=== PATIENT | female | born 1960 | race Caucasian/White ===

== ENCOUNTER → 2017-03-02 | Outpatient (CLI) | payer OTHER ==
[2017-03-02 08:31] LABS: HEMATOCRIT 42.6 % (37.0-47.0); HEMOGLOBIN 14.3 gm/dL (12.0-15.0); MCH 28.1 pg (26.0-34.0); MCHC 33.5 g/dL (28.0-37.0); MCV 84.1 fL (80.0-100.0); RBC 5.07 mil/uL (4.20-5.00); WBC 10.7 thou/uL (4.0-11.0)
[2017-03-02 08:40] LABS: CALCIUM 8.7 mg/dL (8.5-10.1); CREATININE 1.2 mg/dL (0.6-1.0); POTASSIUM 4.1 mmol/L (3.5-5.1)
[2017-03-02 08:46] LABS: ALBUMIN 3.5 g/dL (3.4-5.0); TOTAL BILIRUBIN 0.2 mg/dL (<0.1-1.0); TOTAL PROTEIN 7.3 g/dL (6.4-8.2)
== END ==
LOC: CAT 08:09 → LABMALL 08:46
PROVIDERS: Internal Medicine Cardiovascular Disease
DX: I48.91 Unspecified atrial fibrillation (principal)

== ENCOUNTER 2018-09-26 06:32 | Observation (INO) | payer OTHER ==
[~2018-09-26] VITALS: Ht 162.6 cm; Wt 83.9 kg
[2018-09-26] VITALS (11 sets, daily range): BP systolic 102–115; BP diastolic 34–60
--- NOTE | ~2018-09-26 | P ---
[facility] [place] [address] PROCEDURE REPORT Name: JACEY ATKINSON Room #: 208-P [facility] Meryl Farley#: [id number] Admission: 09/26/18 ������������������ Attend Phys: Ammon Gibson MD Discharge: 09/27/18 ������������������ Date of : 56 Report #: [id number] THIS REPORT FOR: //name// CC: [facility] PREOPERATIVE DIAGNOSIS: Atrial fibrillation. POSTOPERATIVE DIAGNOSES: Atrial fibrillation and atrial flutter. PROCEDURES: 1. Atrial fibrillation ablation, CPT code 43769. 2. 3D mapping EP, CPT code 90258. 3. Intracardiac echo, CPT code 14178. 4. Second pathway ablation for atrial flutter, CPT code 80585. HISTORY: The patient is a 58-year-old female status post prior AFib ablation with clinical recurrence, here for a repeat ablation. ANESTHESIA: The patient underwent general anesthesia with no anesthesia related complications. DESCRIPTION OF PROCEDURE: The patient underwent informed consent. We discussed the details of the procedure including the risks, which include but not limited to bleeding, vascular damage, cardiac perforation as well as stroke or MA. She understood these risks and is willing to proceed. The patient was brought to the EP laboratory in a fasting and unsedated state and prepped and draped in a sterile fashion. I obtained access to the bilateral femoral veins placing two 8-Kyrgyz short sheaths in the right femoral vein and a 7 and 9-Kyrgyz short sheath in the left femoral vein using the modified Seldinger technique. Next, under fluoroscopy, decapolar catheter was placed easily in the coronary sinus and ICE catheter was placed in the right atrium. Next, using intracardiac ultrasound, I created a 3D geometry of the left atrium with specific emphasis of the 2 left and 2 right pulmonary veins. At baseline, the patient was in sinus rhythm with a sinus cycle length of 1035 milliseconds, GA interval 180 milliseconds, QRS duration 70 milliseconds, QT interval 465 milliseconds. Next, the patient was systemically heparinized and a transseptal was performed using a [place] needle and an SL1 sheath. The transseptal was straightforward and I then placed a Lasso catheter in the left atrium. When I placed a Lasso in the left atrium, the patient went into atrial flutter with a proximal and distal activation along the CS and the surface P-wave morphology consistent with typical atrial flutter. Given that this was causing her to be tachycardic, I did pace terminate this with atrial burst pacing from the CS. Using the Lasso catheter, I created a detailed 3D voltage map of the left atrium and this showed that the only vein that remained isolated was left superior [facility] [address] [place] [address] PROCEDURE REPORT Name: JACEY ATKINSONN Room #: 208-P ALANIS Kaminski.RBakari#: [id number] Admission: 09/26/18 ������������������ Attend Phys: Ammon Gibson MD Discharge: 09/27/18 ������������������ Date of : 56 Report #: [id number] pulmonary vein with some large left atrial appendage signals. Therefore, I performed a second transseptal using another SL1 sheath and the [place] needle and placed the Biosense Siddiqi ThermoCool SmartTouch ablation catheter in the left atrium. I isolated the left inferior pulmonary vein and right superior pulmonary vein. I then turned my attention to the right inferior pulmonary vein. This vein was slightly more difficult to isolate. It was mostly reconnected along the inferior aspect of the vein. Extensive ablation was performed here and it was still connected. I continued ablating and eventually I was able to isolate the vein with evidence of entrance and exit block. Next, I created a repeat 3D voltage map of the left atrium and now all the pulmonary veins were isolated. I pulled my catheters to the right atrium. Ablation of typical atrial flutter: Next, I created a detailed 3D geometry of the right atrium and the transisthmus conduction time preablation was 50 milliseconds. I performed ablation via a ramp sheath. The initial ablation line did not result in block. The patient did have a deep pouch at her isthmus. I performed extensive ablation within the pouch, which was mostly along the mid isthmus. There was still no evidence of block. I then performed a more medial line and took care of all the signals in this area. Despite this, the patient was still connected. I then performed a more lateral line and after performing this lesion set, there was now evidence of bidirectional block with transisthmus conduction time of 140 milliseconds. Post-ablation, the patient was in sinus rhythm with sinus cycle length of 915 milliseconds, GA interval 170 milliseconds, QRS duration 75 milliseconds, QT interval 460 milliseconds. As such, all catheters and sheaths were pulled after the patient received systemic protamine. The patient awoke neurologically and hemodynamically intact with no complications. CONCLUSIONS: 1. Successful AFib ablation with re-isolation of the left inferior, right superior and right inferior pulmonary veins. 2. Successful atrial flutter ablation with evidence of bidirectional block. ��������������������������������������������� ���������������������������������������� By: ��������������������������������������������� 0841 0032 Ammon Gibson MD /nt
--- NOTE | ~2018-09-26 | D ---
[facility] [place] [address] DISCHARGE SUMMARY Name: JACEY ATKINSON Room #: 208-P [facility] M.RBakari#: [id number] Admission: 09/26/18 ������������������ Attend Phys: Ammon Gibson MD Discharge: 09/27/18 ������������������ Date of : 56 Report #: [id number] THIS REPORT FOR: //name// CC: Buddy Gibson [facility] DATE OF SERVICE: 09/27/2018 DISCHARGE DIAGNOSES: 1. Atrial fibrillation. 2. Atrial flutter. PROCEDURES PERFORMED: AFib and Aflutter ablation. HISTORY: The patient is a 58-year-old with history of atrial fibrillation status post prior ablation. She has recently had clinical recurrence and is here for a repeat ablation. She underwent successful re-isolation of the left inferior, right superior and right inferior pulmonary veins and also underwent Aflutter ablation. The procedure was straightforward with no complications. HOSPITAL COURSE: The patient was monitored in the CCU overnight. Post-ablation, I did give her some Lasix as during her last ablation, she did have some diastolic heart failure. She diuresed well overnight. She did receive some potassium as well. On the day of discharge, she was doing well. PHYSICAL EXAMINATION: GENERAL: She was in no acute distress. HEENT: Oropharynx was clear. NECK: Supple, no thyromegaly. HEART: Regular rate and rhythm with no murmurs, rubs, gallops and no JVD. LUNGS: Clear to auscultation bilaterally. ABDOMEN: Soft, nontender, nondistended. EXTREMITIES: No clubbing, cyanosis, edema and her groins were healing nicely. Telemetry revealed sinus rhythm with no episodes of AFib or Aflutter and her repeat labs show that her creatinine and her potassium were within normal limits. As such, she was deemed stable for discharge home with plans to follow up with my nurse practitioner in two weeks and me in three months. Discharge instructions were reviewed. ��������������������������������������������� ���������������������������������������� By: ��������������������������������������������� 0845 1705 Ammon Gibson MD /nt
[~2018-09-26 06:32] MED LIST: ACETAMINOPHEN-1 EAC1 PO; ADVAIR HFA 230M12 GM INH; ASPIR 8181 M1 PO; CALCITRIOL0.5 MCG PO; CALCIUM 500 +1 EAC5 PO; CARDIZEM CD240 MG PO; FLEXERIL PO; KEPPRA 500 MG500 M1 PO; LAMICTAL200 MG PO; LEVALBUTER1.25 MG/0. INH; LEVOXYL137 MCG PO; LINZESS290 MCG PO; NASONEX17 GM NASAL; NEURONTIN 300300 M1 PO; NEXIUM40 MG PO; NORTRIPTYLINE H25 M3 PO; PRADAXA150 MG PO; PREDNISONE 20 M20 MG PO; PROPAFENONE HC300 MG PO; SINGULAIR 10 MG10 M1 PO; VENTOLIN HFA 1818 GM INH
[2018-09-26] MEDS ORDERED: LASIX 40 MG TAB40 M2 PO (07:24)
[2018-09-26] MEDS ORDERED: KLOR-CON 1010 MEQ PO (07:25)
[2018-09-26 07:27] LABS: ABSOLUTE NEUTROPHILS 4.3 thou/uL (1.4-8.2); BASOPHILS 1.2 % (0.0-2.0); EOSINOPHILS 3.5 % (0.0-3.0); HEMATOCRIT 43.6 % (37.0-47.0); HEMOGLOBIN 14.4 gm/dL (12.0-15.0); LYMPHOCYTES 39.3 % (24.0-44.0); MCH 28.7 pg (26.0-34.0); MCHC 33.1 g/dL (28.0-37.0); MCV 86.8 fL (80.0-100.0); MONOCYTES 11.5 % (1.0-8.0); PLATELET COUNT 397 thou/uL (150-400); POLYS 44.5 % (36.0-66.0); RBC 5.02 mil/uL (4.20-5.00); WBC 9.6 thou/uL (4.0-11.0)
[2018-09-26 07:33] LABS: APTT 31.2 Seconds (24.5-32.8); CALCIUM 9.2 mg/dL (8.5-10.1); CREATININE 0.9 mg/dL (0.6-1.0); POTASSIUM 3.4 mmol/L (3.5-5.1); PROTIME 10.5 Seconds (9.3-11.4)
[2018-09-26 07:39] LABS: ALBUMIN 3.9 g/dL (3.4-5.0); TOTAL BILIRUBIN 0.4 mg/dL (<0.1-1.0)
--- NOTE | 2018-09-26 18:31 | NUR ---
PATIENT ARRIVED FROM CARDIAC LOG [facility]. L AND R GROIN INCISION, CLEAN, DRY AND INTACT. NO HEMATOMA NOTED. PRN PAIN MED GIVEN FOR BACK PAIN. DC'D SANCHEZ CATHETER. PATIENT HAS VAGAL MONITOR.
[2018-09-27 04:12] LABS: CALCIUM 8.8 mg/dL (8.5-10.1); CREATININE 0.9 mg/dL (0.6-1.0)
[2018-09-27 04:25] LABS: POTASSIUM 4.5 mmol/L (3.5-5.1)
--- NOTE | 2018-09-27 04:51 | NUR ---
PATIENTS CARES WERE ASSUMED AT SHIFT CHANGE. PATIENT WAS ASSESSED AND MEDS WERE PASSED. PATIENTS HAD A RESTFUL SLEEP THIS SHIFT. HOURLY ROUNDING WAS DONE AND PATIENT DID APPER TO BE SLEEPING WELL. PATIENT IS ON SEIZURE MEDICATION. PER PATIENT THE DOES IS NOT RIGHT. WILL PASS IN REPORT FOR THE DAY SHIFT TO CORRECT WITH DOCTOR. THE TWO MEDS ARE KEPPRA SHOULD BE 750 MG X2 B.I.D., SECOND MED IS LAMOTRIGINE SHOULD BE 250MG B.I.D. THE BED IS IN A LOW AND LOCKED POSITION. THE BED ALARM IS ON.
[2018-09-27 05:15] VITALS: BP 114/47
[2018-09-27 07:11] VITALS: BP 109/46
[2018-09-27] MEDS ORDERED: AMITIZA8 MCG (08:18)
--- NOTE | 2018-09-27 11:29 | NUR ---
ASSESSMENT DOCUMENTED. PT ALERT AND ORIENTED. VSS. NO HEMATOMA NOTED ON THE RIGHT GROIN INCISION. PRN PAIN MED GIVEN FOR CHRONIC BACK PAIN. SEEN BY DR LEPE. ORDERS GIVEN TO DISCHARGE PT TO HOME. DISCHARGE INSTRUCTIONS GIVEN TO PT. PT VERBERLIZE UNDERSTANDING. PT LEFT THE FACILITY ACCOMPANIED BY THE .
== END 2018-09-27 11:51 | disposition home or self-care (01) ==
LOC: CATH 06:32 → 2N 13:42 → ENTRNSPT 09-27 11:17 → EDTRNSPTSTS 09-27 11:36 → 2N 09-27 11:51
PROVIDERS: ADMIT Internal Medicine Cardiovascular Disease
DX: I48.91 Unspecified atrial fibrillation (principal); I48.92 Unspecified atrial flutter
CPT/HCPCS: 62110; 62900; 65020; 65040; 70005

== ENCOUNTER → 2018-11-10 | Outpatient (CLI) | payer OTHER ==
[~2018-11-10] MED LIST changes: +AMITIZA8 MCG; +KLOR-CON 1010 MEQ PO; +LASIX 40 MG TAB40 M2 PO
[2018-11-11 07:40] LABS: BE(vivo) 3.7 mmol/L (-2 to +3); HCO3 28.6 mmol/L (22.0-26.0); PCO2 44.2 mmHg (35.0-45.0); PO2 84.7 mmHg (80.0-100.0); pH 7.429 (7.360-7.450); sO2 96.6 % (92.0-98.0)
--- NOTE | 2018-11-11 22:12 | SLE ---
[facility] [place] [address] POLYSOMNOGRAPHY STUDY Name: JACEY ATKINSON Room #: REG [facility]#: [id number] Admission: 11/10/18 ������������������ Attend Phys: Merrill Riley MD Discharge: ������������������ Date of : 56 Report #: [id number] THIS REPORT FOR: //name// CC: Merrill Rivas DATE OF SERVICE: 11/10/2018 SLEEP STUDY ATTENDING PHYSICIAN: Dr. Mckinley Kay. The patient is 58 years old who weighs 178 pounds with a BMI of 30.6. The patient's [place] score was 16. Review of medications also reveals use of hydrocodone, Neurontin, Keppra, Lamictal. The patient underwent sleep study at [facility]. This was a diagnostic study. During the night study, the patient spent 478 minutes in bed and slept for 451 minutes with a sleep efficiency of 94%. Sleep latency was 0.1 minutes, which is short. REM latency of 92 minutes. Overall, sleep architecture showed normal stage 1 sleep, increased stage 2 sleep, reduced N3 sleep and reduced REM sleep. During the night study, the patient had 2 central apneas, no mixed or obstructive apneas and 18 hypopneas. The patient's apnea-hypopnea index was 2.7 per hour. REM KARL was not observed. The patient's supine AHI was 2.7 per hour. EKG monitoring revealed an average heart rate of 57 beats per minute, no sustained arrhythmias observed. No PLMS seen. Nocturnal oximetry study revealed an average oxygen saturation of 90% with a lowest of 85%. 150 minutes were spent in oxygen saturation of less than 89% and the pattern was more suggesting hypoventilation. Due to low AHI, the patient did not meet the split night criteria for CPAP initiation. The patient has a vagal stimulator and the patient used a magnet during the sleep study to shut off the stimulator. IMPRESSION: 1. No clinically significant sleep disordered breathing. The patient's apnea-hypopnea index for the entire night was 2.7 per hour. 2. Sustained pattern of nocturnal hypoxia suggesting hypoventilation. 3. No clinically significant periodic limb movements of sleep. RECOMMENDATIONS: [facility] [address] [place] [address] POLYSOMNOGRAPHY STUDY Name: JACEY ATKINSON Room #: [facility]#: [id number] Admission: 11/10/18 ������������������ Attend Phys: Merrill Riley MD Discharge: ������������������ Date of : 56 Report #: [id number] 1. The patient did not meet the criteria for CPAP initiation. 2. The patient's subjective hypersomnia may be related to the effect of medications. If clinically possible, consider reducing the doses of medications to see any clinical improvement. The patient is on hydrocodone, Lamictal, Neurontin, Keppra. 3. If clinical suspicion for other disorders such as narcolepsy or idiopathic hypersomnia is high, then the patient may require multiple sleep latency tests. ��������������������������������������������� <ELECTRONICALLY SIGNED> ���������������������������������������� By: Merrill Riley MD ��������������������������������������������� 11/11/18 2212 1707 1802 Merrill Riley MD /nt
== END ==
LOC: SLEEPLAB 11:29
PROVIDERS: Internal Medicine Critical Care Medicine
DX: G47.34 Idiopathic sleep related nonobstructive alveolar hypoventilation (principal); G47.19 Other hypersomnia; Z79.899 Other long term (current) drug therapy; Z88.0 Allergy status to penicillin; Z88.8 Allergy status to other drugs, medicaments and biological substances

== ENCOUNTER → 2018-11-26 | Outpatient (CLI) | payer OTHER ==
[2018-11-26 15:54] LABS: BE(vivo) 2.6 mmol/L (-2 to +3); HCO3 27.9 mmol/L (22.0-26.0); PCO2 45.4 mmHg (35.0-45.0); PO2 80.8 mmHg (80.0-100.0); pH 7.406 (7.360-7.450); sO2 95.9 % (92.0-98.0)
== END ==
LOC: RAD 15:20
PROVIDERS: Internal Medicine Pulmonary Disease
DX: R06.02 Shortness of breath (principal)

== ENCOUNTER → 2019-01-05 | Outpatient (CLI) | payer OTHER ==
--- NOTE | 2019-01-07 18:51 | SLE ---
[facility] [place] [address] POLYSOMNOGRAPHY STUDY Name: JACEY ATKINSON Room #: REG [facility]#: [id number] Admission: 01/05/19 ������������������ Attend Phys: Merrill Riley MD Discharge: ������������������ Date of : 56 Report #: [id number] THIS REPORT FOR: //name// CC: Merrill Rivas DATE OF SERVICE: 01/05/2019 SLEEP STUDY ATTENDING PHYSICIAN: Dr. Mckinley Kay. The patient is 58 years old who weighs 178 pounds with a BMI of 30.6. The patient's [place] score was 16 suggesting moderate to severe subjective hypersomnia. The patient had a previous sleep study in 11/2018 and was found to have an AHI of only 2.7 per hour. She also had nocturnal hypoxia suggesting hypoventilation. As a result she was placed on 2 liters at nighttime. The patient was also on Lamictal, gabapentin, Keppra, and hydrocodone. It was suggested that she should be tried on limiting the doses of these medications. The patient was referred back for a diagnostic sleep study followed by MSLT. The results of sleep study are dictated here. During the night study, the patient spent 489 minutes in bed and slept for 411 minutes with a sleep efficiency of 84%. Sleep latency was 21 minutes with a REM latency of 85 minutes. Overall, sleep architecture showed normal stage 1 sleep, increased stage 2 sleep, absent slow wave and normal REM sleep, which is 19% of total sleep time. During the night study, the patient had no apneas. There were only 2 hypopneas. The patient's apnea-hypopnea index for the entire night was 0.3 per hour. No significant change seen during supine or REM sleep. EKG monitoring revealed an average heart rate of 57 beats per minute. No sustained arrhythmias observed. No PLMS observed. Nocturnal oximetry study revealed an average oxygen saturation of 95% with a lowest of 91% while the patient slept on 2 liters. IMPRESSION: 1. No clinically significant sleep disordered breathing. The patient's AHI for the entire night was 0.3 per hour. 2. Near normal sleep efficiency of 84%. 3. No clinically significant nocturnal hypoxia while the patient slept on 2 liters of oxygen. [facility] [address] [place] [address] POLYSOMNOGRAPHY STUDY Name: JACEY ATKINSON Room #: REG [facility]#: [id number] Admission: 01/05/19 ������������������ Attend Phys: Merrill Riley MD Discharge: ������������������ Date of : 56 Report #: [id number] 4. No clinically significant periodic limb movements. RECOMMENDATIONS: 1. The patient did not meet the criteria for CPAP initiation. 2. The patient has persistent moderate to severe subjective hypersomnia. The patient underwent multiple sleep latency test to rule out the possibility of idiopathic hypersomnia or narcolepsy, which is dictated separately. 3. Avoid BUNGHOLE BORER depressants. It should be noted that the patient has been on Lamictal, gabapentin and Keppra, which can contribute to daytime sleepiness. Patient should be closely watched for hypersomnia while on these medications. 4. Cautioned regarding driving or operating heavy machinery until the patient's hypersomnia is resolved. ��������������������������������������������� <ELECTRONICALLY SIGNED> ���������������������������������������� By: Merrill Riley MD ��������������������������������������������� 01/07/19 1851 1526 1623 Merrill Riley MD /nt
== END ==
LOC: SLEEPLAB 14:56
DX: G47.34 Idiopathic sleep related nonobstructive alveolar hypoventilation (principal); G47.19 Other hypersomnia; J45.40 Moderate persistent asthma, uncomplicated; R53.83 Other fatigue; R06.02 Shortness of breath

== ENCOUNTER → 2019-01-06 | Outpatient (CLI) | payer OTHER ==
[2019-01-06 15:19] LABS: AMP/METHAMP Negative (Negative); BARBITURATES Negative (Negative); BENZODIAZEPINES Negative (Negative); COCAINE Negative (Negative); METHADONE Negative (Negative); OPIATES Negative (Negative); PCP Negative (Negative)
--- NOTE | 2019-01-07 22:39 | SLE ---
[facility] [place] [address] POLYSOMNOGRAPHY STUDY Name: JACEY ATKINSON Room #: REG [facility]#: [id number] Admission: 01/06/19 ������������������ Attend Phys: Merrill Riley MD Discharge: ������������������ Date of : 56 Report #: [id number] THIS REPORT FOR: //name// CC: Merrill KAY MD DATE OF SERVICE: 01/06/2019 MULTIPLE SLEEP LATENCY TEST ATTENDING PHYSICIAN: Dr. Mckinley Kay. The patient is a 58-year-old female who has been evaluated for persistent hypersomnia. The patient's [place] score was 16 out of a maximum of 24. The patient had a previous sleep study and was found to have no clinically significant sleep disordered breathing. The patient's AHI was 2.7 per hour. She has been on Lamictal, gabapentin and Keppra and was also taking hydrocodone. The side effects of medications were discussed, but according to the notes, she has been sleepy even prior to these medications. She was referred back for repeat polysomnogram followed by multiple sleep latency test. The results of the MSLT are discussed here. The patient did stop the hydrocodone, had reduced the dose of gabapentin, but could not take herself off of Lamictal and Keppra due to history of seizure. During the night prior to the multiple sleep latency test, the patient's AHI was only 0.3 per hour and sleep efficiency was 84% and no clinically significant PLMs observed. The MSLT protocol was followed, which consisted of 5 daytime nap opportunities spaced at 2 hour intervals. During the first nap session, the patient had a sleep latency of 6 minutes. No REM sleep was observed. During the second nap, the patient slept again with a sleep latency of 9 minutes and 54 seconds, but no REM sleep observed. During the third nap, the patient's sleep latency was 10 minutes. During the fourth nap, sleep latency was 16 minutes. Again, no REM sleep was observed on the third and the fourth naps. During the fifth nap, the patient's sleep latency was short at 36 seconds and no REM sleep was observed. The patient's mean sleep latency for 5 naps was 8 minutes and 30 seconds and no REM sleep observed. IMPRESSION: 1. Abnormal multiple sleep latency test with a short mean sleep latency of 8 minutes and 30 seconds. This is consistent with Idiopathic Hypersomia. Patient did not met the MSLT criteria for narcolepsy as no REM sleep was observed during the naps. RECOMMENDATIONS: 1. The patient can be initiated on stimulant medications. [address] [address] POLYSOMNOGRAPHY STUDY Name: JACEY ATKINSON Room #: REG [facility] Martine#: [id number] Admission: 01/06/19 ������������������ Attend Phys: Merrill Riley MD Discharge: ������������������ Date of : 56 Report #: [id number] 2. The patient should be followed up to see the clinical improvement after initiation of a stimulant medication. 3. The patient's anti-seizure medications including Lamictal and Keppra can also contribute to daytime sleepiness and the patient should be closely watched for hypersomnia while on these medications. Minimize the dose of gabapentin if clinically possible. 4. Cautioned regarding driving until the patient's hypersomnia is resolved. ��������������������������������������������� <ELECTRONICALLY SIGNED> ���������������������������������������� By: Merrill Riley MD ��������������������������������������������� 01/07/19 2239 185 46 Merrill Riley MD /nt
== END ==
LOC: SLEEPLAB 08:10
PROVIDERS: Internal Medicine Critical Care Medicine
DX: G47.34 Idiopathic sleep related nonobstructive alveolar hypoventilation (principal); G47.19 Other hypersomnia; J45.40 Moderate persistent asthma, uncomplicated; R53.83 Other fatigue; R06.02 Shortness of breath; I48.91 Unspecified atrial fibrillation

== ENCOUNTER → 2019-07-11 | Outpatient (CLI) | payer OTHER | LOC: SJCVC 15:00 | DX: R94.31 Abnormal electrocardiogram [ECG] [EKG] (principal); I48.0 Paroxysmal atrial fibrillation; I48.3 Typical atrial flutter; G89.29 Other chronic pain; I10 Essential (primary) hypertension; E03.9 Hypothyroidism, unspecified; Z90.49 Acquired absence of other specified parts of digestive tract; Z96.652 Presence of left artificial knee joint; Z79.899 Other long term (current) drug therapy ==

== ENCOUNTER → 2019-07-23 | Outpatient (CLI) | payer OTHER | LOC: SJCVCIMAG 13:39 | DX: I20.0 Unstable angina (principal); I48.0 Paroxysmal atrial fibrillation; I10 Essential (primary) hypertension; R60.9 Edema, unspecified; E03.9 Hypothyroidism, unspecified; Z79.899 Other long term (current) drug therapy; Z90.49 Acquired absence of other specified parts of digestive tract; Z82.49 Family history of ischemic heart disease and other diseases of the circulatory system ==

== ENCOUNTER → 2019-07-29 | Outpatient (CLI) | payer OTHER ==
[~2019-07-29] VITALS: Ht 162.6 cm; Wt 84.8 kg
--- NOTE | ~2019-07-29 | EKG ---
[facility] [address] [place] [address] ELECTROCARDIOGRAM REPORT Name: JACEY ATKINSON Room #: REG [facility]#: [id number] Admission: 07/29/19 Attend Phys: Hiren Edmonds MD Discharge: Date of : 56 Report #: [id number] THIS REPORT FOR: cc: FAM - Family physician unknown FAM - Family physician unknown Desirae Merrill MD ~ THIS REPORT FOR: //name// [facility] Test Date: 2019-07-29 Test Time: 09:04:18 Pat Name: JACEY ATKINSON Department: Room: Gender: F Alteration Tailor: Narayan GO : 1960 Requested By: Hiren Edmonds Order Number: [id number] MD: Measurements Intervals [place] Rate: 68 P: 54 SD: 183 QRS: 3 QRSD: 100 T: 29 QT: 412 QTc: 439 Interpretive Statements Sinus rhythm Inferior infarct, old Compared to ECG 03/09/2017 08:22:07 Myocardial infarct finding now present [email or web address] By: 0904 0904 Epiphany EpiphanyMD /EPI
[2019-07-29 09:19] LABS: HEMATOCRIT 39.8 % (37.0-47.0); HEMOGLOBIN 12.5 gm/dL (12.0-15.0); MCH 24.9 pg (26.0-34.0); MCHC 31.3 g/dL (28.0-37.0); MCV 79.4 fL (80.0-100.0); RBC 5.01 mil/uL (4.20-5.00); RDW 18.4 % (10.5-14.5); WBC 11.1 thou/uL (4.0-11.0)
[2019-07-29 09:29] LABS: CALCIUM 8.7 mg/dL (8.5-10.1); POTASSIUM 3.9 mmol/L (3.5-5.1)
[2019-07-29 11:24] VITALS: BP 134/64
--- NOTE | 2019-07-29 13:48 | CATHLAB ---
[facility] [place] [address] INVASIVE PROCEDURE REPORT Name: JACEY ATKINSON Room #: REG LUCAS Chon#: [id number] Admission: 07/29/19 Attend Phys: Hiren Edmonds MD Discharge: Date of : 56 Report #: [id number] THIS REPORT FOR: cc: FAM - Family physician unknown FAM - Family physician unknown Hiren Edmonds MD ~ APPROVED REPORT Study performed: 07/29/2019 08:56:25 Patient Details Patient Status: Out-Patient Room #: The patient is a 59 year-old female Event Personnel Hiren Edmonds Environmental Health Specialist, Stacie Mott RN RN, Heaven Kim Monitor, Torin Barriga RTR Scrub Procedures Performed Art Access - R femoral artery* Left Heart Cath w/or w/o Coronaries [id number] [facility] [address] Initial Mod Sed Same Phys/QHP Gr5y [id number] 35695 Mod Sed Same Phys/QHP Ea 760698 Hemostasis with Manual pressure Indication Dyspnea, Positive stress test, Chest pain Risk Factors Hypercholesterolemia, Hypertension Procedure Narrative The Right Groin^ was infiltrated with 1% Lidocaine subcutaneous anesthesia. A PINNACLE 4FR Sheath #[id number] sheath was inserted into the RFA^. Coronary angiography was performed using coronary diagnostic catheters. The right coronary system was accessed and visualized with a AR 1 catheter. The left coronary system was accessed and visualized with a JL4 catheter. The left ventricle was accessed and visualized with a ANGLE PIG catheter. Left ventriculogram was performed in 30 degree projection. Hemostasis was obtained with manual pressure following sheath removal without any complications. The patient tolerated the procedure well and there were no complications associated with the procedure. There was no hematoma. [facility] [address] [place] [address] INVASIVE PROCEDURE REPORT Name: JACEY ATKINSON Drake Room #: REG [facility]#: [id number] Admission: 07/29/19 Attend Phys: Hiren Edmonds MD Discharge: Date of : 56 Report #: [id number] Intraoperative Conscious Sedation Sedation start time: 951 Case end Time: 1030 Fentanyl 75 mcg Versed 1 mg Fluoro Time: 5.80 minutes Dose: DAP 6301.00 cGycm2 1698 mGy Contrast Type and Amount: Omnipaque 80 ml Coronary Angiography The patient's coronary anatomy is right dominant. Diagnostic Cath Left Main The left main artery is a large-caliber vessel, patent with no flow-limiting lesions. LAD The LAD is a moderate to large caliber vessel, traversing the anterior wall and wrapping around the apex. This vessel is patent with no flow-limiting lesions. Diagonal 1 This is a moderate size caliber vessel, patent with no flow-limiting lesions. Circumflex This is a moderate size caliber vessel, supplies one OM vessel. OM1 This is a moderate size caliber vessel, patent with no flow-limiting lesions. Right Coronary The RCA has an anomalous origin, coming from the left coronary cusp, adjacent to the takeoff of the left coronary artery. This vessel appears to be patent with no flow-limiting lesions. R PDA This is a patent vessel, with no flow-limiting lesions. RPLV This is a patent vessel, with no flow-limiting lesions. Left Ventriculography The left ventricle is normal in size with normal contractility. The left ventricular ejection fraction is estimated to be >55%. Hemodynamics The aortic pressure is 124/64 mmHg with a mean of 32 mmHg. The left ventricular pressure is 134/13 mmHg with a mean of mmHg. Conclusion 1. Angiographically normal coronary arteries. 2. 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 [facility] [address] [place] [address] INVASIVE PROCEDURE REPORT Name: JACEY ATKINSON Room #: REG [facility]#: [id number] Admission: 07/29/19 Attend Phys: Hiren Edmonds MD Discharge: Date of : 56 Report #: [id number] 3. Normal LV systolic function. 4. Recommend risk factor management. <ELECTRONICALLY SIGNED> By: Hiren Edmonds MD 07/29/19 1347 1347 1347 Hiren Edmonds MD /INF
--- NOTE | 2019-07-30 08:19 | EKG ---
[facility] [place] [address] ELECTROCARDIOGRAM REPORT Name: JACEY ATKINSON Room #: REG [facility]#: [id number] Admission: 07/29/19 Attend Phys: Hiren Edmonds MD Discharge: Date of : 56 Report #: [id number] THIS REPORT FOR: cc: FAM - Family physician unknown FAM - Family physician unknown Ammon Gibson MD ~ THIS REPORT FOR: //name// [facility] Test Date: 2019-07-29 Test Time: 09:04:18 Pat Name: JACEY ATKINSON Department: Room: Gender: Dental Assistant Instructor: Narayan GO : 1960 Requested By: Hiren Edmonds Order Number: [id number] MD: Ammon Gibson Measurements Intervals [place] Rate: 68 P: 54 NH: 183 QRS: 3 QRSD: 100 T: 29 QT: 412 QTc: 439 Interpretive Statements Sinus rhythm Compared to ECG 03/09/2017 08:22:07 Myocardial infarct finding now present Electronically Signed On 07-30-2019 8:18:02 SPECIAL ED ASSISTANT by Ammon Gibson [email or web address] <ELECTRONICALLY SIGNED> By: Ammon Gibson MD 07/30/19817 3 3 Ammon Gibson MD /BECKI
== END | disposition home or self-care (01) ==
LOC: CATH 07:55
PROVIDERS: Internal Medicine Cardiovascular Disease
DX: R07.9 Chest pain, unspecified (principal); R94.39 Abnormal result of other cardiovascular function study; I10 Essential (primary) hypertension; E03.9 Hypothyroidism, unspecified; J45.909 Unspecified asthma, uncomplicated; I48.91 Unspecified atrial fibrillation; Z90.49 Acquired absence of other specified parts of digestive tract; Z98.51 Tubal ligation status; Z90.710 Acquired absence of both cervix and uterus; Z96.652 Presence of left artificial knee joint; Z79.01 Long term (current) use of anticoagulants; Z79.899 Other long term (current) drug therapy; Z98.890 Other specified postprocedural states; Z88.0 Allergy status to penicillin; Z88.2 Allergy status to sulfonamides; Z88.8 Allergy status to other drugs, medicaments and biological substances

== ENCOUNTER → 2019-08-13 | Outpatient (CLI) | payer OTHER | LOC: SJCVC 11:36 | DX: R94.31 Abnormal electrocardiogram [ECG] [EKG] (principal); I48.0 Paroxysmal atrial fibrillation; I10 Essential (primary) hypertension; E03.9 Hypothyroidism, unspecified; Z90.49 Acquired absence of other specified parts of digestive tract; Z90.710 Acquired absence of both cervix and uterus; Z79.899 Other long term (current) drug therapy ==

== ENCOUNTER → 2019-08-16 | Outpatient (CLI) | payer OTHER ==
[2019-08-16 12:52] LABS: CREATININE 0.9 mg/dL (0.6-1.0)
== END ==
LOC: CAT 12:15
PROVIDERS: Internal Medicine Cardiovascular Disease
DX: R07.9 Chest pain, unspecified (principal)

== ENCOUNTER → 2019-08-21 | Outpatient (CLI) | payer OTHER ==
[~2019-08-21] MED LIST changes: +ASMANEX220 MC2 INH; +DILTIAZEM 24HR360 M1 PO; +IMDUR 30 MG TAB30 M1 PO; +MOVANTIK25 MG PO
== END ==
LOC: CV 09:13 → CAT 09:13
DX: Q24.5 Malformation of coronary vessels (principal)

== ENCOUNTER → 2019-08-28 | Outpatient (CLI) | payer OTHER | LOC: SJCVCIMAG | DX: Z01.818 Encounter for other preprocedural examination (principal); I65.23 Occlusion and stenosis of bilateral carotid arteries; Q24.5 Malformation of coronary vessels; I48.0 Paroxysmal atrial fibrillation; I10 Essential (primary) hypertension; I48.92 Unspecified atrial flutter; G47.34 Idiopathic sleep related nonobstructive alveolar hypoventilation; I48.91 Unspecified atrial fibrillation; G40.909 Epilepsy, unspecified, not intractable, without status epilepticus; M54.5 Low back pain; G89.29 Other chronic pain; R60.0 Localized edema; Z90.710 Acquired absence of both cervix and uterus; Z90.49 Acquired absence of other specified parts of digestive tract; Z79.899 Other long term (current) drug therapy; Z88.5 Allergy status to narcotic agent; Z88.0 Allergy status to penicillin; Z88.2 Allergy status to sulfonamides; Z88.8 Allergy status to other drugs, medicaments and biological substances ==

== ENCOUNTER → 2019-09-18 | Outpatient (CLI) | payer OTHER | LOC: SJCVC 10:55 | DX: R94.31 Abnormal electrocardiogram [ECG] [EKG] (principal); I48.0 Paroxysmal atrial fibrillation; I10 Essential (primary) hypertension; R60.9 Edema, unspecified; E03.9 Hypothyroidism, unspecified; Q24.5 Malformation of coronary vessels; Z79.899 Other long term (current) drug therapy; Z82.49 Family history of ischemic heart disease and other diseases of the circulatory system ==

== ENCOUNTER → 2019-10-02 | Outpatient (CLI) | payer OTHER | LOC: SJCVC 10:55 | DX: I48.0 Paroxysmal atrial fibrillation (principal); Q24.5 Malformation of coronary vessels; R60.9 Edema, unspecified; Z79.899 Other long term (current) drug therapy; Z82.49 Family history of ischemic heart disease and other diseases of the circulatory system ==

== ENCOUNTER → 2019-12-04 | Outpatient (CLI) | payer OTHER | LOC: SJCVC 09:58 | PROVIDERS: ATTEND Internal Medicine Cardiovascular Disease | DX: I48.0 Paroxysmal atrial fibrillation (principal); I25.10 Atherosclerotic heart disease of native coronary artery without angina pectoris; I10 Essential (primary) hypertension; Q24.5 Malformation of coronary vessels; R60.9 Edema, unspecified; Z79.899 Other long term (current) drug therapy ==

== ENCOUNTER → 2020-01-15 | Outpatient (CLI) | payer OTHER ==
[~2020-01-15] MED LIST changes: -CALCIUM 500 +1 EAC5 PO; +CALCIUM 600+D31 EACH PO; +FLONASE 0.05%50 MCG NASAL; +FOSAMAX 70 MG T70 MG PO; +HYDROXYZINE HCL25 M2 PO; -KEPPRA 500 MG500 M1 PO; +KEPPRA750 MG PO; +LAMOTRIGINE100 MG PO; +LEVOXYL112 MCG PO; -LEVOXYL137 MCG PO; +MUPIROCIN22 GM TOP; +TOPROL XL100 MG PO; +VITAMIN D21250 MC1 PO
== END ==
LOC: SJCVC 14:00
PROVIDERS: ATTEND Internal Medicine Cardiovascular Disease
DX: R94.31 Abnormal electrocardiogram [ECG] [EKG] (principal); I48.0 Paroxysmal atrial fibrillation; Q24.5 Malformation of coronary vessels; E03.9 Hypothyroidism, unspecified; I10 Essential (primary) hypertension; Z82.49 Family history of ischemic heart disease and other diseases of the circulatory system; Z79.899 Other long term (current) drug therapy

== ENCOUNTER → 2020-01-23 | Outpatient (CLI) | payer OTHER | LOC: ULTRA 12:43 | PROVIDERS: ATTEND Surgery Vascular Surgery | DX: Z01.818 Encounter for other preprocedural examination (principal); I25.10 Atherosclerotic heart disease of native coronary artery without angina pectoris ==

== ENCOUNTER → 2020-01-23 | Outpatient (CLI) | payer OTHER | LOC: LAB 10:45 | PROVIDERS: ATTEND Student in an Organized Health Care Education/Training Program | DX: Z01.812 Encounter for preprocedural laboratory examination (principal); Z11.59 Encounter for screening for other viral diseases ==

== ENCOUNTER 2020-01-28 06:11 | Inpatient (IN) | payer OTHER ==
[2020-01-23 11:50] LABS: ABSOLUTE NEUTROPHILS 3.5 thou/uL (1.4-8.2); BASOPHILS 0.4 % (0.0-2.0); EOSINOPHILS 4.5 % (0.0-3.0); HEMATOCRIT 40.5 % (37.0-47.0); HEMOGLOBIN 13.2 gm/dL (12.0-15.0); LYMPHOCYTES 45.5 % (24.0-44.0); MCH 27.6 pg (26.0-34.0); MCHC 32.6 g/dL (28.0-37.0); MCV 84.7 fL (80.0-100.0); MONOCYTES 10.5 % (1.0-8.0); PLATELET COUNT 351 thou/uL (150-400); POLYS 39.1 % (36.0-66.0); RBC 4.78 mil/uL (4.20-5.00); RDW 15.7 % (10.5-14.5); WBC 9.1 thou/uL (4.0-11.0)
[2020-01-23 12:06] LABS: INR 1.2
[2020-01-23 12:10] LABS: ALBUMIN 3.2 g/dL (3.4-5.0); CALCIUM 8.2 mg/dL (8.5-10.1); POTASSIUM 4.2 mmol/L (3.5-5.1); TOTAL BILIRUBIN 0.3 mg/dL (0.2-1.0); TOTAL PROTEIN 6.9 g/dL (6.4-8.2)
[2020-01-23 12:31] LABS: URINE BILIRUBIN NEGATIVE (Negative); URINE BLOOD NEGATIVE (Negative); URINE CLARITY CLEAR; URINE COLOR YELLOW; URINE GLUCOSE-RANDOM* NEGATIVE (Negative); URINE KETONES NEGATIVE (Negative); URINE LEUKOCYTES-REFLEX NEGATIVE (Negative); URINE NITRITE-REFLEX NEGATIVE (Negative); URINE PROTEIN (DIPSTICK) NEGATIVE (Negative); URINE SPECIFIC GRAVITY >= 1.030 (1.005-1.035); URINE UROBILINOGEN 0.2 E.U./dl (0.2-1.0)
[2020-01-24 04:06] LABS: GLYCOHEMOGLOBIN (HGB A1C) 5.3 % (4.8-5.6)
[~2020-01-28] VITALS: Ht 162.6 cm; Wt 93.1 kg
[2020-01-28 08:45] VITALS: BP 100/75
[2020-01-28 12:08] LABS: POC BE -1 mmol/L (-2.0 to +3.0); POC CA IONIZED 4.5 mg/dL (4.5-5.3); POC GLUCOSE 118 mg/dL (70-99); POC HCO3 23.9 mmol/L (22.0-26.0); POC HEMOGLOBIN 12.9 g/dL (12.0-15.0); POC POTASSIUM 4.3 mmol/L (3.5-5.1); POC SODIUM 141 mmol/L (136-145); POC pCO2 36.3 mmHg (35.0-45.0); POC pH 7.426 (7.360-7.450)
[2020-01-28 12:08] LABS: POC BE -2 mmol/L (-2.0 to +3.0); POC CA IONIZED 3.6 mg/dL (4.5-5.3); POC GLUCOSE 112 mg/dL (70-99); POC HCO3 23.2 mmol/L (22.0-26.0); POC HEMOGLOBIN 10.2 g/dL (12.0-15.0); POC POTASSIUM 4.5 mmol/L (3.5-5.1); POC SODIUM 137 mmol/L (136-145); POC pCO2 38.9 mmHg (35.0-45.0); POC pH 7.383 (7.360-7.450)
[2020-01-28 12:08] LABS: POC BE -1 mmol/L (-2.0 to +3.0); POC CA IONIZED 3.9 mg/dL (4.5-5.3); POC GLUCOSE 120 mg/dL (70-99); POC HCO3 23.7 mmol/L (22.0-26.0); POC HEMOGLOBIN 9.5 g/dL (12.0-15.0); POC POTASSIUM 5.1 mmol/L (3.5-5.1); POC SODIUM 139 mmol/L (136-145); POC pCO2 37.6 mmHg (35.0-45.0); POC pH 7.407 (7.360-7.450)
[2020-01-28 12:08] LABS: POC BE 0 mmol/L (-2.0 to +3.0); POC CA IONIZED 4.2 mg/dL (4.5-5.3); POC GLUCOSE 117 mg/dL (70-99); POC HCO3 25.3 mmol/L (22.0-26.0); POC HEMOGLOBIN 12.6 g/dL (12.0-15.0); POC POTASSIUM 4.4 mmol/L (3.5-5.1); POC SODIUM 139 mmol/L (136-145); POC pCO2 44.5 mmHg (35.0-45.0); POC pH 7.362 (7.360-7.450)
[2020-01-28 12:09] LABS: POC BE -1 mmol/L (-2.0 to +3.0); POC CA IONIZED 4.3 mg/dL (4.5-5.3); POC GLUCOSE 144 mg/dL (70-99); POC HCO3 23.8 mmol/L (22.0-26.0); POC HEMOGLOBIN 9.5 g/dL (12.0-15.0); POC POTASSIUM 4.3 mmol/L (3.5-5.1); POC SODIUM 137 mmol/L (136-145); POC pCO2 37.1 mmHg (35.0-45.0); POC pH 7.416 (7.360-7.450)
[2020-01-28 12:09] LABS: POC BE -3 mmol/L (-2.0 to +3.0); POC CA IONIZED 4.2 mg/dL (4.5-5.3); POC GLUCOSE 105 mg/dL (70-99); POC HCO3 21.9 mmol/L (22.0-26.0); POC HEMOGLOBIN 11.2 g/dL (12.0-15.0); POC POTASSIUM 4.1 mmol/L (3.5-5.1); POC SODIUM 139 mmol/L (136-145); POC pCO2 36.3 mmHg (35.0-45.0); POC pH 7.388 (7.360-7.450)
[2020-01-28 12:09] LABS: POC BE 0 mmol/L (-2.0 to +3.0); POC GLUCOSE 124 mg/dL (70-99); POC HCO3 25.3 mmol/L (22.0-26.0); POC HEMOGLOBIN 9.5 g/dL (12.0-15.0); POC SODIUM 140 mmol/L (136-145); POC pCO2 43.5 mmHg (35.0-45.0); POC pH 7.373 (7.360-7.450)
[2020-01-28 12:11] LABS: HEMATOCRIT 27.2 % (37.0-47.0); MCH 27.6 pg (26.0-34.0); MCHC 32.5 g/dL (28.0-37.0); MCV 84.9 fL (80.0-100.0); RBC 3.2 mil/uL (4.20-5.00); RDW 15.4 % (10.5-14.5); WBC 15.8 thou/uL (4.0-11.0)
[2020-01-28 12:14] LABS: HEMOGLOBIN 8.8 gm/dL (12.0-15.0)
[2020-01-28 12:16] LABS: APTT 33.7 Seconds (24.5-32.8); FIBRINOGEN 151.9 mg/dL (210-360); INR 1.4; PROTIME 14.6 Seconds (9.3-11.4)
[2020-01-28 12:43] VITALS: BP 115/57
[2020-01-28 12:47] VITALS: BP 115/57
[2020-01-28 13:01] LABS: HEMATOCRIT 33.9 % (37.0-47.0); MCHC 33.2 g/dL (28.0-37.0); MCV 84.3 fL (80.0-100.0); RBC 4.03 mil/uL (4.20-5.00); RDW 15.4 % (10.5-14.5); WBC 20.8 thou/uL (4.0-11.0)
[2020-01-28 13:01] LABS: BE(vivo) -6.7 mmol/L (-2 to +3); HCO3 17.1 mmol/L (22.0-26.0); PCO2 29.3 mmHg (35.0-45.0); PO2 163.7 mmHg (80.0-100.0); pH 7.385 (7.360-7.450); sO2 99.1 % (92.0-98.0)
[2020-01-28 13:08] LABS: HEMOGLOBIN 11.3 gm/dL (12.0-15.0)
[2020-01-28 13:19] LABS: APTT 30.7 Seconds (24.5-32.8); CALCIUM 7.1 mg/dL (8.5-10.1); CREATININE 0.9 mg/dL (0.6-1.0); INR 1.2; MAGNESIUM 2.8 mg/dL (1.8-2.4); POTASSIUM 4.3 mmol/L (3.5-5.1); PROTIME 12.7 Seconds (9.3-11.4)
--- NOTE | 2020-01-28 14:20 | NUR ---
1243-FROM O.R. W OPEN HEART TEAM IN ATTENDANCE.--VW
--- NOTE | 2020-01-28 16:08 | EKG ---
[facility] [place] [address] ELECTROCARDIOGRAM REPORT Name: JACEY ATKINSON Room #: 251-P ADM IN M.R.#: [id number] Admission: 01/28/20 Attend Phys: Catrachito Rocha MD Discharge: Date of : 56 Report #: [id number] THIS REPORT FOR: cc: FAM - No family physician/PCP FAM - No family physician/PCP Ammon Gibson MD ~ THIS REPORT FOR: //name// [facility] Test Date: 2020-01-28 Test Time: 13:20:25 Pat Name: JACEY ATKINSON Department: Room: [facility] P Gender: F Jointer Operator: Gordy CHENG : 1960 Requested By: Magdiel Daniel Order Number: [id number] MD: Ammon Gibson Measurements Intervals [place] Rate: 63 P: [place]: QRS: -18 QRSD: 97 T: 67 QT: 488 QTc: 500 Interpretive Statements Sinus rhythm Abnormal R-wave progression, early transition Inferior infarct, old Compared to ECG 07/29/2019 09:04:18 Electronically Signed On 01-28-2020 16:07:59 CDT by Ammon Gibson [email or web address] <ELECTRONICALLY SIGNED> By: Ammon Gibson MD 01/28/20 1607 1320 1320 Ammon Gibson MD /EPI
[2020-01-28 16:38] VITALS: BP 84/43
[2020-01-28 17:48] LABS: CALCIUM 6.7 mg/dL (8.5-10.1); POTASSIUM 4.4 mmol/L (3.5-5.1)
[2020-01-28 20:04] LABS: BE(vivo) -5.8 mmol/L (-2 to +3); PCO2 30.5 mmHg (35.0-45.0); PO2 131.4 mmHg (80.0-100.0); sO2 98.6 % (92.0-98.0)
[2020-01-28 21:59] LABS: BE(vivo) -6.4 mmol/L (-2 to +3); HCO3 18.4 mmol/L (22.0-26.0); PCO2 34.2 mmHg (35.0-45.0); PO2 119.3 mmHg (80.0-100.0); pH 7.349 (7.360-7.450); sO2 98.2 % (92.0-98.0)
[2020-01-28 22:08] VITALS: BP 101/49
[2020-01-29] VITALS (14 sets, daily range): BP systolic 89–112; BP diastolic 37–55
--- NOTE | 2020-01-29 03:17 | NUR ---
Pt was extubated at 2018, she tolerated this well and was started on O2 at 6 L/m, with sats at 99-100%. She is currently on 2 L/m via NC. Her lungs are clear, diminished to bases, an IS was taken into the room, will receive training in the am. She has a dry non productive cough, is splinting appropriately. No pleural tube is present, mediastinal CT drainage is getting syrup mixer, averaging 40-50 ml's/hr. She remains on IV levophed at 6 mcg's for BP support, left radial art line has been reading 100-110's over 50's, + pulses, no edema, good hemodynamic values are noted, see charting. Pt has been taking sips/chips of PO fluids, jello given for hydrocodone administration, she denies any nausea and no difficulty swallowing. The bed is in the low/locked position, the siderails are up x 4 and the call light is within reach. Depending on her condition, continued use of levo, pt may be getting up to the recliner in a few hours.
[2020-01-29 05:39] LABS: HEMATOCRIT 31.8 % (37.0-47.0); HEMOGLOBIN 10.5 gm/dL (12.0-15.0); MCH 28.3 pg (26.0-34.0); MCV 85.7 fL (80.0-100.0); RBC 3.71 mil/uL (4.20-5.00); RDW 15.8 % (10.5-14.5); WBC 17.8 thou/uL (4.0-11.0)
[2020-01-29 06:01] LABS: CALCIUM 6.3 mg/dL (8.5-10.1); MAGNESIUM 2.6 mg/dL (1.8-2.4); POTASSIUM 4.3 mmol/L (3.5-5.1)
--- NOTE | 2020-01-29 06:28 | NUR ---
Pt remains on 6 mcg's of levophed, infusing at 22.5 ml/hr, MAP has been within parameters, with the exception of immediately after IV fentanyl was given at 0519 for pain rated at 10/10. Pt's linen was changed this morning with a CHG bath given, there is a small "tape" burn to the left upper back from the Code Pads, which were removed. Garcia catheter remains patent, draining dark yellow urine, total of 350 ml's, with a strong odor noted. Pt was not gotten out of bed this morning due to the levophed, as she dropped into the 80's when the med was off for a brief period of time. She rebounded quickly and med will be titrated as allowable.
--- NOTE | 2020-01-29 08:49 | NUR ---
Nutrition: pt open heart, POD 1, unroofing of right coronary artery, clipping left atrial appendage. Consult received, followup for education needs when transfers out of ICU and closer to D/C.
--- NOTE | 2020-01-29 13:05 | NUR ---
Case opened to follow for dc planning. Pt is currently in the ICU s/p unroofing of anonymous coronary artery. She is off the vent and weaning off levo. Therapy and cardiac rehab evals in progress. Compress Machine Operator spoke with pt's spouse Art via phone. They are from [place], [place] and he was here at bedside earlier this morning. He indicates that the pt was indep with gait and adl's prior to admission. The pt is disabled from a seizure disorder and has a vagal nerve stimulator. He does the driving and errands. The pt has an RN 1xwkly and a homemaker 2.5hrs x 6 days aweek who helps with light housekeeping and meal prep. She can run errands for them as well. These services are provided through her [place] medicaid and [employer]. The pt does not have any DME in place. They have a ramp into the front door of their ranch style home. Their dtr Perla is involved and supportive. Cm role introduced. Will follow along should the pt have any dme or HH or rehab needs at dc. Pt will likely transfer to CCU once she is weaned off levo. Will follow.
--- NOTE | 2020-01-29 16:45 | O ---
[facility] [place] [address] OPERATIVE REPORT Name: JACEY ATKINSON Room #: 251-P ADM IN M.R.#: [id number] Admission: 01/28/20 Attend Phys: Catrachito Rocha MD Discharge: Date of : 56 Report #: [id number] THIS REPORT FOR: cc: ANTHONY - No family physician/PCP ANTHONY - No family physician/PCP Catrachito Rocha MD ~ CC: 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 OPERATION: Unroofing of anomalous right coronary artery and clipping of left atrial appendage. SURGEON: Catrachito Rocha MD CO-SURGEON: Dr. Fabio Hollins. CLERK GENERAL: SIMI Montalvo. ANESTHESIA: General. 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 This course is between the aorta and the pulmonary artery and appears to be intramural and we believe this is causing angina. The patient has also seen Dr. Simpson for atrial arrhythmias and has had ablation for atrial fibrillation and flutter. Dr. Simpson believes the patient has a sufficient residual atrial fibrillation burden and that a left atrial clip should be applied. FINDINGS AND TECHNIQUE: After general anesthesia was established, a short piece of saphenous vein was harvested in case a graft would be needed for bypass if the unroofing was unsuccessful or if our diagnosis had been incorrect. Exposure was obtained through median sternotomy. Left pericardial well was made. Cannulation sutures were placed. Heparin was given. Aorta was cannulated. Right atrium was cannulated. Cardioplegia needle was positioned in the aortic root. Retrograde cardioplegic catheter was placed in the coronary [facility] [address] [place] [address] OPERATIVE REPORT Name: DEMETRIOJACEY Juan Room #: 251-P [facility] IN ..#: [id number] Admission: 01/28/20 Attend Phys: Catrachito Rocha MD Discharge: Date of : 56 Report #: [id number]. Cardiopulmonary bypass was established. Aorta was cross clamped. Antegrade and retrograde cardioplegia were given. Ice was poured into the pericardial well. The heart was stopped. During electromechanical arrest, the atrial was applied. The base of the left atrial appendage was measured and the appropriate was selected and placed at the base of the left atrial appendage. An aortotomy was made at the sinotubular junction after we had dissected out the aortic root to ascertain that this indeed was an intramural coronary artery from the outside of the aorta. The aortotomy was made. The left main coronary artery was probed with a right angle clamp to show us the course of the right coronary artery. This was unroofed with a [place] blade and then excess tissue was excised all the way to the point where the right coronary began to deviate from the aorta. At this point, 2.5 mm probe was placed into the coronary artery without any obstruction. Marsupializing sutures were placed at places we thought needed tacking to maintain the orifice. The original right coronary was intramural and with a slit-like opening, we were suspicious that this was a symptomatic problem. Once the coronary had been unroofed and the new pathway to the right coronary ostium was established, this appeared to have fixed the anatomic issue. After the marsupializing sutures were placed, the aorta was inspected from within and without to ascertain that there were no other defects. It should be mentioned that retrograde cardioplegia was given every 15 minutes through the coronary sinus during the conduct of the procedure. When we were satisfied with the unroofing the aortotomy was closed in Carrel technique: The patient was rewarmed. Warm retrograde cardioplegia was given followed by warm continuous blood to the coronary sinus. When this infusion was complete, the crossclamp was removed, de-airing maneuvers were performed. The aortotomy appeared to be satisfactory and there was no evidence of any hematoma in the aorta. The chest tubes and pacing wires were placed. When the patient is warm, she was weaned from cardiopulmonary bypass. Venous cannula was removed. Protamine was given, the aortic cannula was removed. When hemostasis was satisfactory, chest was closed in the usual fashion. The [address] [address] OPERATIVE REPORT Name: JACEY ATKINSON Room #: 251-P [facility] IN M.R.#: [id number] Admission: 01/28/20 Attend Phys: Catrachito Rocha MD Discharge: Date of : 56 Report #: [id number] patient was taken to the Intensive Care Unit in good condition having tolerated the procedure well. All counts reported as correct. <ELECTRONICALLY SIGNED> By: Catrachito Rocha MD 01/29/20 1645 1324 1348 Catrachito Rocha MD /nt
--- NOTE | 2020-01-29 19:42 | NUR ---
PT MOVING TOWARDS GOALS. STILL ON A SMALL AMT OF LEVOPHED KEEPING SBP > 90. DID NOT WANT TO GET OOB FOR DINNER. STATES SHE WAS HURTING TOO BAD. TOLORATING MEAL.
[2020-01-29 22:23] LABS: URINE BILIRUBIN NEGATIVE (Negative); URINE BLOOD 1+ (Negative); URINE CLARITY CLEAR; URINE COLOR YELLOW; URINE GLUCOSE-RANDOM* NEGATIVE (Negative); URINE KETONES NEGATIVE (Negative); URINE LEUKOCYTES-REFLEX NEGATIVE (Negative); URINE NITRITE-REFLEX NEGATIVE (Negative); URINE PROTEIN (DIPSTICK) NEGATIVE (Negative); URINE SPECIFIC GRAVITY <= 1.005 (1.005-1.035); URINE UROBILINOGEN 0.2 E.U./dl (0.2-1.0)
[2020-01-29 22:30] LABS: URINE RBC 0-2 Rare /HPF (0-2)
[2020-01-29 22:35] LABS: CASTS None Seen /LPF (None Seen); SQUAMOUS None Seen /LPF (0-3)
[2020-01-29 22:36] LABS: BACTERIA-REFLEX 1-9 Few /HPF (None Seen); CRYSTALS None Seen /LPF (None Seen); URINE WBC-REFLEX None Seen /HPF (0-5)
[2020-01-30] VITALS (8 sets, daily range): BP systolic 52–112; BP diastolic 28–48
--- NOTE | 2020-01-30 06:00 | NUR ---
PT AWAKE AND ALERT UP TO CARDIAC CHAIR ELEAZAR WELL. CHEST AND LEG DRESSING INTACT. 800 CC UO AND 50 CC CHEST TUBE INCREASE. C/O OF CHEST INCISIONBAL PAIN. REMAINS ON LEVOPHED GTT6 AT 5 MCG TO KEEP AST BP > 90. WILL CONT TO MONITOR
[2020-01-30 06:02] LABS: HEMOGLOBIN 10.6 gm/dL (12.0-15.0); MCH 27.4 pg (26.0-34.0); MCHC 32.1 g/dL (28.0-37.0); MCV 85.5 fL (80.0-100.0); RBC 3.85 mil/uL (4.20-5.00); RDW 15.7 % (10.5-14.5); WBC 19.9 thou/uL (4.0-11.0)
[2020-01-30 06:15] LABS: CALCIUM 6.9 mg/dL (8.5-10.1); CREATININE 0.8 mg/dL (0.6-1.0); POTASSIUM 3.7 mmol/L (3.5-5.1)
--- NOTE | 2020-01-30 07:58 | EKG ---
[facility] [place] [address] ELECTROCARDIOGRAM REPORT Name: JACEY ATKINSON Room #: 251-P ADM IN M.R.#: [id number] Admission: 01/28/20 Attend Phys: Catrachito Rocha MD Discharge: Date of : 56 Report #: [id number] THIS REPORT FOR: cc: ANTHONY - No family physician/PCP FAM - No family physician/PCP Salazar Lora MD [facility] THIS REPORT FOR: //name// [facility] Test Date: 2020-01-29 Test Time: 07:20:46 Pat Name: JACEY ATKINSON Department: Room: [facility] Gender: F Natural Science Curator: RAFAT : 1960 Requested By: Magdiel Daniel Order Number: [id number] MD: Salazar Lora Measurements Intervals [place] Rate: 68 P: [place]: QRS: -5 QRSD: 100 T: 5 QT: 449 QTc: 478 Interpretive Statements Sinus rhythm Low voltage, extremity leads Abnormal R-wave progression, early transition Abnrm T, consider ischemia, anterolateral lds Compared to ECG 01/28/2020 13:20:25 T wave abnormality is more pronounced Electronically Signed On 01-30-2020 7:58:39 CDT by Salazar Lora [email or web address] <ELECTRONICALLY SIGNED> By: Salazar Lora MD, [facility] 01/30/20 0758 9 9 Salazar Lora MD, [facility] /EPI
--- NOTE | 2020-01-30 11:47 | NUR ---
discuss during los, possible good candidate for 5 n acute rehab when medically stable. still on levo drip, iv meds and having pain. cm passed on information to bedside nurse to see if md wants 5n consult?.
--- NOTE | 2020-01-30 14:13 | NUR ---
HEREDITARY CANCER PROGRAM COORDINATOR SPOKE WITH NURSING TO REQUEST GI CONSULT D/T PMHX OF ESOPHAGEAL DYSPHAGIA WITH DILATION.
--- NOTE | 2020-01-30 18:21 | NUR ---
ASSUMED CARE @ 0700 01/30/20, PT ASSESSMENTS AND VSS COMPLETE PER ICU PROTOCOL. PT ON LEVOPHED AT START OF SHIFT, RN HAS TRIED TO TITRATE OFF, THIS WAS UNSUCCESSFUL, SBP IN THE 80'S AND MAP IN 50'S WHEN TITRATED DOWN, PIO BELCHER AWARE.
[2020-01-31] VITALS (63 sets, daily range): BP systolic 74–121; BP diastolic 23–63
--- NOTE | 2020-01-31 06:00 | NUR ---
PT HAS BEEN UP TO CHAIR THE PAST 2 HRS ELEAZAR WELL REMAINS ON LEVOPHED GTT AT 7 MCG. VOIDED 2500 CC CLEAR FRANKI URINE THIS SHIFT. CHEST DRESSINBG INTACT WITH WOUND VAC. REMAINS IN SINUS RHYTHM. PT IS VERY STRONG GETTING UP AND DOWN. PROGRESDSING TOWARD GOALS. WILL CONT TO MONITOR. O2 NC AT 2 LITERS
--- NOTE | 2020-01-31 15:37 | NUR ---
chart review. noted pt sitting up in recliner from [facility], bedside nurse in room. cm called spouse art [phone] " we i am about there at 150 hyw and i will visit with her in bit thanks for calling"/art. pt and spouse from [place].
--- NOTE | 2020-01-31 15:51 | NUR ---
PATIENT SEEN FOR REHAB CONSULT ON 01/30/20 BY ANA TURPIN NP WITH DR. ORTIZ. PATIENT COULD BENEFIT FROM SHORT REHAB STAY, BUT PATIENT IS ADAMENT ABOUT RETURNING TO HOME. LEGAL COORDINATOR INFORMED. LEGAL COORDINATOR CAN REACH OUT TO SEED TESTER IF PATIENT DECIDES THAT SHE WOULD LIKE TO GO TO 5N FOR SHORT REHAB STAY. THANK YOU FOR THIS REFERRAL.
--- NOTE | 2020-01-31 20:05 | NUR ---
ASSUMED PT CARE AT 0700; PATIENT AWAKE, SITTING UP IN BED, ON 7 MCG/KG/MIN OF LEVO; BP 90s-100s/40s-50s, MIDODRINE STARTED PER ORDERS. WILL CONTINUE TO MONITOR AND FOLLOW POC.
[2020-02-01] VITALS (51 sets, daily range): BP systolic 85–124; BP diastolic 28–53
[2020-02-01 05:30] LABS: HEMATOCRIT 30.1 % (37.0-47.0); HEMOGLOBIN 9.9 gm/dL (12.0-15.0); MCH 28.1 pg (26.0-34.0); MCHC 32.8 g/dL (28.0-37.0); MCV 85.8 fL (80.0-100.0); RBC 3.51 mil/uL (4.20-5.00); RDW 16.2 % (10.5-14.5); WBC 12.5 thou/uL (4.0-11.0)
[2020-02-01 05:53] LABS: CALCIUM 7.8 mg/dL (8.5-10.1); CREATININE 0.8 mg/dL (0.6-1.0); MAGNESIUM 2.2 mg/dL (1.8-2.4); POTASSIUM 4.1 mmol/L (3.5-5.1)
--- NOTE | 2020-02-01 19:38 | NUR ---
ASSUMED PT CARE AT 0700; PATIENT AWAKE, ALERT, IN BED. CONT. TO REQUIRE LEVO AT 6 MCG/KG/MIN, UNABLE TO TITRATE LOWER THAN 4 MCG DUE TO HYPOTENSION WITH MAPs IN THE 50s. MIDODRINE INCREASED TO 5 TID. C/O OF INCREASED SOA WITH ACTIVITY; SPO2 REMAINED > 2% ON 2L NC. FAMILY CALLED AND UPDATED ON STATUS AND POC.
[2020-02-02] VITALS (67 sets, daily range): BP systolic 86–119; BP diastolic 24–55
--- NOTE | 2020-02-02 09:00 | NUR ---
ASSESSMENTS AND INTERVENTIONS DOCCUMETNED. RN ASSUMED CARE AT 0700. PATIENT IN CHAIR. PATIENT APPEARING TO BE A LITTLE WORRIED ABOUT THORACENTESIS. PAIENT UP TO BED SIDE COMODE. PATIENT STATES SHE HAS BE HAVING SOB SINCE A FEW DAYS. PATIENT DOESNT APPEAR TO BE IN ANY DISTRESS AT THIS TIME.
[2020-02-03] VITALS (74 sets, daily range): BP systolic 95–145; BP diastolic 27–105
--- NOTE | 2020-02-03 01:46 | NUR ---
ASSESSMENTS CHARTED, MEDS CHARTED GIVEN. PATIENT ARRIVED AT SHIFT CHANGE FROM ICU ON A LEVOPHED DRIP TRITATED TO KEEP MAP ABOVE 65. RIGHT JUGULAR INTRODUCER STILL IN PLACE, ON Q15 BLOOD PRESSURES. ON 2 LITERS NC, UP WITH ASSIST TO BSC. PLAN TO DO EGD IN AM. PATIENT NPO SINCE MIDNIGHT. ALSO POSSIBLE THOROCENTESIS IN AM. FALL PRECAUTIONS IN PLACE, DENIED PAIN.
--- NOTE | 2020-02-03 08:36 | EKG ---
[facility] [address] [place] [address] ELECTROCARDIOGRAM REPORT Name: JACEY ATKINSON Room #: 204-P ADM IN M.R.#: [id number] Admission: 01/28/20 Attend Phys: Catrachito Rocha MD Discharge: Date of : 56 Report #: [id number] THIS REPORT FOR: cc: ANTHONY - No family physician/PCP ANTHONY - No family physician/PCP Salazar Lora MD [facility] THIS REPORT FOR: //name// [facility] Test Date: 2020-02-01 Test Time: 07:40:48 Pat Name: JACEY ATKINSON Department: Room: 204 Gender: F International Editorial Producer: Zia BERG : 1960 Requested By: Magdiel Daniel Order Number: [id number] MD: Salazar Lora Measurements Intervals [place] Rate: 74 P: 29 [place]: 196 QRS: 29 QRSD: 70 T: 105 QT: 431 QTc: 479 Interpretive Statements Sinus rhythm Low voltage, extremity and precordial leads Nonspecific T abnrm, anterolateral leads Compared to ECG 01/29/2020 07:20:46 T wave abnormalities less pronounced Electronically Signed On 02-03-2020 8:36:00 CDT by Salazar Lora [email or web address] <ELECTRONICALLY SIGNED> By: Salazar Lora MD, FAC 02/03/2036 9 Salazar Lora MD, FAC /EPI
--- NOTE | 2020-02-03 08:43 | EKG ---
[facility] [place] [address] ELECTROCARDIOGRAM REPORT Name: JACEY ATKINSON Room #: 204-P ADM IN M.R.#: [id number] Admission: 01/28/20 Attend Phys: Catrachito Rocha MD Discharge: Date of : 56 Report #: [id number] THIS REPORT FOR: cc: ANTHONY - No family physician/PCP ANTHONY - No family physician/PCP Salazar Lora MD [facility] ~ THIS REPORT FOR: //name// [facility] Test Date: 2020-02-01 Test Time: 16:23:18 Pat Name: JACEY ATKINSON Department: Room: 204 Gender: F Supervisor Paint: Zia BERG : 1960 Requested By: Temo Ronquillo Order Number: [id number] MD: Salazar Lora Measurements Intervals [place] Rate: 78 P: [place]: QRS: 25 QRSD: 70 T: 93 QT: 580 QTc: 661 Interpretive Statements Sinus rhythm Anterolateral infarct, age indeterminate Low voltage Prolonged QT interval Compared to ECG 02/01/2020 07:40:48 Poor R wave progression is now present Electronically Signed On 02-03-2020 8:43:18 CDT by Salazar Lora [email or web address] <ELECTRONICALLY SIGNED> By: Salazar Lora MD, [facility] 02/03/20 0843 1623 1623 Salazar Lora MD, [facility] /EPI
[2020-02-03 09:26] LABS: HEMATOCRIT 29.7 % (37.0-47.0); MCH 28.2 pg (26.0-34.0); MCHC 32.9 g/dL (28.0-37.0); MCV 85.8 fL (80.0-100.0); RBC 3.46 mil/uL (4.20-5.00); RDW 16.2 % (10.5-14.5); WBC 9.3 thou/uL (4.0-11.0)
[2020-02-03 09:30] LABS: HEMOGLOBIN 9.8 gm/dL (12.0-15.0)
[2020-02-03 09:34] LABS: CALCIUM 7.5 mg/dL (8.5-10.1); CREATININE 0.8 mg/dL (0.6-1.0); MAGNESIUM 2.2 mg/dL (1.8-2.4); POTASSIUM 3.7 mmol/L (3.5-5.1)
[2020-02-03 09:37] LABS: CALCIUM 7.5 mg/dL (8.5-10.1); CREATININE 0.8 mg/dL (0.6-1.0); PHOSPHORUS 2.6 mg/dL (2.5-4.9)
[2020-02-03 11:44] LABS: TOTAL PROTEIN 6.1 g/dL (6.4-8.2)
[2020-02-03 16:24] LABS: BF NUCLEATED CELLS 267 /mm3; BF RBC 33332 /mm3
[2020-02-03 16:40] LABS: CLARITY TURBID; COLOR RED; TOTAL VOLUME 60 mL
--- NOTE | 2020-02-03 17:23 | NUR ---
PT CARE ASSUMED APPROX 0700. ASSESSMENTS CHARTED. PT DENIES PAIN AND SOA. VSS. TITRATING DOWN ON LEVO GTT. PROCEDURE COMPLETED WITHOUT ISSUE. AT BEDSIDE BRIEFLY THIS SHIFT. PT AND SPOUSE DENIES QUESTIONS OR CONCERNS REGARDING POC. ALL DSGS C/D/I. STERNAL VAC FUNCTIONING PROPERLY. PT TOLERATING POC. NO DISTRESS NOTED.
[2020-02-03 17:47] LABS: SOURCE THORACENTESIS
[2020-02-03 17:50] LABS: BF NEUTROPHILS 11 %
[2020-02-03 17:51] LABS: BF MACROPHAGE 22 %
[2020-02-03 18:00] LABS: BF COMMENTS 11
[2020-02-04 01:25] VITALS: BP 101/50
--- NOTE | 2020-02-04 03:44 | NUR ---
ASSESSMENT DOCUMENTED.PT BEEN RESTING IN THE RECYCLINER THROUGH THE NOC.RUBINA LES ELEVATED.VSS.ON O2 AT 2LITERS PNC.STERNUM DRESSING CDI.WOUND VAC TO SUCTION.IS ENCOURGED,PULLING UPTO 750.DENIES PAIN OR ANY DISTRESS.NSR ON MONITOR.UP WITH SBA TO BSC.POC IS TO CONTINUE WITH CURRENT TX.
[2020-02-04 05:36] LABS: HEMATOCRIT 28.2 % (37.0-47.0); HEMOGLOBIN 9.3 gm/dL (12.0-15.0); MCH 28.5 pg (26.0-34.0); MCV 86.5 fL (80.0-100.0); RBC 3.26 mil/uL (4.20-5.00); RDW 16.3 % (10.5-14.5); WBC 9.3 thou/uL (4.0-11.0)
[2020-02-04 05:40] VITALS: BP 98/45
[2020-02-04 06:03] LABS: CALCIUM 7.6 mg/dL (8.5-10.1); CREATININE 0.8 mg/dL (0.6-1.0); MAGNESIUM 2.1 mg/dL (1.8-2.4); POTASSIUM 3.9 mmol/L (3.5-5.1)
[2020-02-04 12:36] VITALS: BP 105/43
[2020-02-04 13:08] LABS: BODY FLUID ALBUMIN 1.3 g/dL (Not Estab.); BODY FLUID AMYLASE 7 U/L (()); BODY FLUID GLUCOSE 101 mg/dL (()); BODY FLUID LDH 157 IU/L (()); BODY FLUID PROTEIN 2.4 g/dL (())
--- NOTE | 2020-02-04 16:08 | NUR ---
PATIENT HAD BEEN SEEN FOR REHAB CONSULT EARLIER IN ACUTE ADMISSION AND WAS A CANDIDATE FOR ACUTE REHAB STAY. AT THAT TIME PATIENT'S PLAN WAS TO RETURN DIRECTLY HOME. COOK FISH EGGS INFORMED THIS DATE THAT PATIENT IS NOW HOPING TO COME TO 5N/REHAB. ANA TURPIN, LEAVE COORDINATOR WITH DR. ORTIZ, REVIEWED PATIENT'S CHART AND PATIENT DETERMINED TO STILL BE APPROPRIATE FOR SHORT REHAB STAY. CONTROL PANEL TESTER INFORMED. PLAN FOR PATIENT TO ADMIT TO REHAB TOMORROW, 02/05/20. THANK YOU FOR THIS REFERRAL.
[2020-02-04 16:16] VITALS: BP 114/60
--- NOTE | 2020-02-04 16:16 | NUR ---
patient reports interested in rehab. 5n evaled and accepting of patient once stable.
--- NOTE | 2020-02-04 16:34 | NUR ---
PT CARE ASSUMED APPROX 0700. ASSESSMENTS CHARTED. PT DENIES PAIN AND SOA. LIBERATED FROM O2 THIS SHIFT. PT TOLERATING POC AND CHANGES MADE TO POC. UP TO BSC WITH SBA AND MIN ASSIST TO AMBULATE IN [place]ALL[place]. VSS. NO DISTRESS NOTED. WILL CONTINUE WITH POC.
[2020-02-04 20:11] VITALS: BP 108/40
[2020-02-04 20:45] LABS: SOURCE THORACENTESIS
--- NOTE | 2020-02-05 02:32 | NUR ---
ASSUMED CARE OF PATIENT AT 1900. PATIENT DENIED PAIN WITH EXCEPTION OF WHEN SHE COUGHS. ENCOURAGED USE OF INCENTIVE SPIROMETER WHILE AWAKE. PATIENT ON RA, MAINTAINING OXYGEN SATURATIONS IN THE MID 90s. PATIENT APPEARS TO BE PROGRESSING TOWARDS GOALS.
[2020-02-05 04:51] VITALS: BP 101/38
[2020-02-05] MEDS ORDERED: MIDODRINE HCL 55 M1 PO (10:08)
[2020-02-05] MEDS ORDERED: LEVAQUIN 750 M750 MG PO (10:15)
[2020-02-05 10:24] VITALS: BP 108/61
--- NOTE | 2020-02-05 10:51 | NUR ---
TO GI LAB FOR EGD EARLY. BACK BY WC. VSS. SR PER TELE. DR. ORTIZ HERE TO [facility] FOR 5N. WILL CONTINUE TO FOLLOW.
--- NOTE | 2020-02-05 11:07 | HC ---
[facility] [place] [address] CONSULTATION Name: JACEY ATKINSON Room #: 204-P ADM IN M.R.#: [id number] Admission: 01/28/20 Attend Phys: Catrachito Rocha MD Discharge: Date of : 56 Report #: [id number] THIS REPORT FOR: cc: ANTHONY Barboza family physician/PCP ANTHONY Barboza family physician/PCP Anjel Dick MD ~ CC: ANTHONY physician/PCP Catrachito Rocha DATE OF SERVICE: 02/04/2020 ENDOCRINE CONSULTATION NOTE CONSULTING PHYSICIAN: Dr. Nowak. REASON FOR CONSULTATION: Hypothyroidism, hypocalcemia. HISTORY OF PRESENT ILLNESS: This is a 60-year-old female patient whose medical background is significant for multiple medical issues including hypothyroidism, hypoparathyroidism, hypocalcemia as well as atrial fibrillation. 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 The patient is known to have hypothyroidism since 2003 when she had a total thyroidectomy procedure done for a benign goiter. She has been on levothyroxine replacement since then with her most recent dose being at 112 mcg daily. She has maintained a dose for the past 3 months prior to which she was on 137 mcg daily. She has intermittent issues with fatigue, tiredness, but not significant body weight changes, skin or hair changes. At the same time of her thyroid surgery, the patient has suffered parathyroid injury and has been maintained on calcium support since then. Her most recent regimen consisted of calcium carbonate 3000 mg daily, calcitriol 0.5 mcg daily, ergocalciferol 50,000 units once weekly. With this, she does will generally, but does have intermittent difficulties with numbness and tingling involving her face and fingertips, but without severe muscle spasms. The patient has not had difficulties pertaining to kidney stones, but she did have to undergo bilateral cataract surgery. Again, the patient is known to have hypertension and is maintained on metoprolol 100 mg daily with adequate control. REVIEW OF SYSTEMS: CONSTITUTIONAL: Negative for fatigue, tiredness, body weight changes, fever or chills. HEENT: Negative for sore throat, sinus pain or ear drainage. PULMONARY: Negative for shortness of breath, cough or hemoptysis. CARDIAC: Negative for chest pain, but noted for intermittent palpitations. No syncope or pre-syncope. [address] [address] CONSULTATION Name: JACEY ATKINSON Room #: 204-P [facility] IN .R.#: [id number] Admission: 01/28/20 Attend Phys: Catrachito Rocha MD Discharge: Date of : 56 Report #: [id number] GASTROINTESTINAL: No abdominal pain, nausea, vomiting. NEUROLOGY: Noted for intermittent tingling and numbness affecting her face and fingertips. No seizure activity, severe frequent headaches or loss of consciousness. PSYCHIATRIC: Negative for delusions, hallucinations, severe issues with anxiety or depression. Otherwise, review of systems noncontributory other than those mentioned in HPI. PAST MEDICAL HISTORY: 1. Hypothyroidism, postoperative. 2. Hypocalcemia. 3. Hypoparathyroidism. 4. Vitamin D deficiency. 5. Atrial fibrillation. 6. Coronary artery disease. 7. Valvular heart disease. 8. Hypertension. 9. Neuropathy. 10. Asthma. 11. History of breast nodule. 12. Degenerative disk disease. PAST SURGICAL HISTORY: Noted for appendectomy, cholecystectomy, thyroidectomy, left total knee replacement, cardiac ablation procedure in 2017 and 2019, lumbar laminectomy, bilateral cataract surgery, great toe fusion, cervical spine fusion. OUTPATIENT MEDICATIONS: Include: 1. Calcitriol 0.5 mcg daily. 2. Singulair 10 mg daily. 3. Keppra 750 mg taken as 2 pills b.i.d. 4. Flexeril 10 mg daily. 5. Calcium plus vitamin D plus magnesium 2 tablets p.o. b.i.d. 6. Levothyroxine 112 mcg daily. 7. Gabapentin 300 mg p.o. daily. 8. Nexium 40 mg b.i.d. 9. Albuterol 2 puffs p.r.n. asthma. 10. Lasix 20 mg daily. 11. Klor-Con 20 mEq daily. 12. Imdur 30 mg daily. 13. Asmanex 220 mcg inhalation b.i.d. 14. Fosamax 70 mg daily. 15. Hydroxyzine 25 mg t.i.d. p.r.n. 16. Lamotrigine 250 mg p.o. b.i.d. 17. Metoprolol 100 mg daily. 18. Pradaxa 150 mg b.i.d. [address] [address] CONSULTATION Name: JACEY ATKINSON [place] Room #: 204-P [facility] IN M.R.#: [id number] Admission: 01/28/20 Attend Phys: Catrachito Rocha MD Discharge: Date of : 56 Report #: [id number] 19. Vitamin D3 50,000 units weekly. ALLERGIES: SULFA, TOPIRAMATE, KEFLEX, PENICILLIN. FAMILY HISTORY: Noncontributory. SOCIAL HISTORY: She denies use of tobacco, alcohol or illicit drugs. PHYSICAL EXAMINATION: GENERAL: Pleasant female patient who is not in apparent pain or distress. VITAL SIGNS: Blood pressure is 98/45 mmHg, heart rate is 91 beats per minute, respirations 18 per minute, temperature 37 degrees Celsius. CONSTITUTIONAL: The patient is sitting upright in bed, appears comfortable, not in apparent distress. HEENT: Anicteric sclerae. Intact extraocular motions. NECK: Supple, without JVD. Well-healed thyroidectomy incision is noted at the base of the neck. CHEST: Noted for a recent sternotomy incision with dressing over moderate air entry with scattered rales. HEART: Regular rate and rhythm without murmurs or gallops. ABDOMEN: Soft, lax. No guarding. Active bowel sounds. EXTREMITIES: Lower extremity exam, ankle edema, but no skin breaks. NEUROLOGIC: Awake, alert and oriented to time, place and person. The remainder of her examination is nonfocal. PSYCHIATRY: Pleasant, interactive. Normal mood and affect. LABORATORY DATA: The patient's blood glucose levels remained within normal limits for the most part during her hospital stay. Sodium 140, potassium 3.9, chloride 107, CO2 of 26, anion gap 7, creatinine 0.8, glucose 100, AST 108, total bilirubin 0.3, calcium 7.6 and it had ranged from 6.3-8.8 mg/dL, magnesium 2.1, phosphorus 2.6, alkaline phosphatase 130, total protein 6.1, albumin 2.8, EGFR 73. BNP 147. Free T4 of 1.0. INR 1.2. White blood count 9.3, hemoglobin 9.3, hematocrit 28.2, platelets 450. TSH 25.1. Hemoglobin A1c 5.3. Cortisol random 18.2. Vitamin D 52.7. Ionized calcium anywhere from 4.2 to 5.0. PTH 44. ASSESSMENT AND PLAN: 1. Hypothyroidism. As noted above, the patient has a longstanding history of hypothyroidism. Her dose has been down adjusted 3-4 months ago from 137-112 mcg daily based on her thyroid function studies at this time. Based on her current uncontrolled TSH of 25, I would like to change that back again to 137 mcg daily with a plan to monitor her thyroid function studies in 4-6 weeks from now. The patient is agreeable. 2. Hypocalcemia. The patient has had longstanding hypocalcemia in the wake of her parathyroid injury in 2003. She is maintained on a regimen of calcium [address] [address] CONSULTATION Name: JACEY ATKINSON Room #: 204-P [facility] IN ..#: [id number] Admission: 01/28/20 Attend Phys: Catrachito Rocha MD Discharge: Date of : 56 Report #: [id number] carbonate 3000 mg daily. I would like to resume that at the same rate of 1000 mg t.i.d. Also, the patient is maintained on calcitriol 0.5 mcg daily, which I would like to resume as well. I would like to maintain her current calcium, magnesium, vitamin D intake as well as vitamin D3 intake. Calcium levels will be monitored and address as needed. 3. Hyperparathyroidism. This is surgical and as noted above, the patient has done well on her chronic combination of calcium and vitamin D, which will be resumed as noted above. 4. Hyperglycemia. The patient had mild glycemic excursions; however, the bulk of her blood glucose values were within normal limits and her hemoglobin A1c echo that outlook at 5.3%. No further management is needed. 5. Vitamin D deficiency. I will say the patient just maintained on a combination of calcitriol and ergocalciferol long-term and this will be maintained during this hospital stay. I have reviewed the patient's clinical care notes, laboratory data, and other pertinent information both inpatient and outpatient for over 35 minutes in addition to my encounter time with her. I certainly appreciate this consultation by Dr. Nowak. <ELECTRONICALLY SIGNED> By: Anjel Dick MD 02/05/20 [id number] Anjel Dick MD /nt
--- NOTE | 2020-02-05 13:33 | NUR ---
patient agreeable to 5N they are accepting today. No further needs.
[2020-02-05 15:08] VITALS: BP 112/90
--- NOTE | 2020-02-06 16:06 | PATH ---
[facility] [place] [address] PATHOLOGY RPT PROCEDURE Name: JACEY GTZ Drake Room #: 204-P DIS IN M.R.#: [id number] Admission: 01/28/20 Date of : 56 Discharge: 02/05/20 Report #: [id number] Path Case #: [id number] [facility] Accession Number: [id number] . 01 Material submitted: . stomach - BX OF ANTRUM . 01 Clinician provided ICD-10: Q24.5 . 01 Clinical history: . R/O H PYLORI MALFORMATION OF CORONARY VESSELS . 02 Diagnosis: Gastric mucosa antrum, endoscopic biopsy: - Mild reactive gastropathy. - Negative for intestinal metaplasia or atrophy. - Negative for Helicobacter pylori (properly controlled immunohistochemical stain performed). (IUV/db; 02/06/2020) LBQ 02/06/2020 1131 Local . 02 Electronically signed: . Lida U Vadlamani, MD, Pathologist NPI- [id number] . 01 Gross description: . The specimen is received in formalin, labeled "Jacey Gtz", "biopsy of antrum". Received are 2 segments of pale kwan soft tissue measuring 0.2 and 0.3 cm. The specimen is entirely submitted in cassette A1.(SNA; 02/05/2020) BYRON/MARIANELA 02/05/2020 1738 Local . 02 Pathologist provided ICD-10: K31.9 . 02 CPT . 550926, [id number] Specimen Comment: A courtesy copy of this report has been sent to [phone] Specimen Comment: [id number] Specimen Comment: Report sent to / DR AMIN Performed at: 01 [place] [id number] [address] [id number] MD Kiran Kelly MD Phone: [phone] [address] [address] PATHOLOGY RPT PROCEDURE Name: JACEY GTZ Room #: 204-P [facility].#: [id number] Admission: 01/28/20 Date of : 56 Discharge: 02/05/20 Report #: [id number] Path Case #: [id number] Performed at: [address] [id number] MD Lida Santana MD Phone: [phone]
== END 2020-02-05 16:14 | DRG 228 ==
LOC: TBA 06:11 → ICU 06:11 → PRE 08:46 → ICU 12:36 → PRE 13:00 → 2N 02-02 19:55
PROVIDERS: Internal Medicine; Physician Assistant; ADMIT Surgery Vascular Surgery; ATTEND Surgery Vascular Surgery
PROC: 02L70CK Occlusion of Left Atrial Appendage with Extraluminal Device, Open Approach (ICD-10-PCS; principal; 2020-01-28)
PROC: 5A1221Z Performance of Cardiac Output, Continuous (ICD-10-PCS; principal; 2020-01-28)
PROC: 02N Heart and Great Vessels, Release (ICD-10-PCS; principal; 2020-01-28)
PROC: 0W9B3ZZ Drainage of Left Pleural Cavity, Percutaneous Approach (ICD-10-PCS; 2020-02-03)
PROC: 0D758ZZ Dilation of Esophagus, Via Natural or Artificial Opening Endoscopic (ICD-10-PCS; 2020-02-05)
PROC: 0DB78ZX Excision of Stomach, Pylorus, Via Natural or Artificial Opening Endoscopic, Diagnostic (ICD-10-PCS; 2020-02-05)
DX: Q24.5 Malformation of coronary vessels (principal); J96.01 Acute respiratory failure with hypoxia; I38 Endocarditis, valve unspecified; I48.20 Chronic atrial fibrillation, unspecified; I48.92 Unspecified atrial flutter; E44.0 Moderate protein-calorie malnutrition; R65.10 Systemic inflammatory response syndrome (SIRS) of non-infectious origin without acute organ dysfunction; D62 Acute posthemorrhagic anemia; J98.11 Atelectasis; J91.8 Pleural effusion in other conditions classified elsewhere; E89.0 Postprocedural hypothyroidism; E83.51 Hypocalcemia; I25.10 Atherosclerotic heart disease of native coronary artery without angina pectoris; I10 Essential (primary) hypertension; G62.9 Polyneuropathy, unspecified; J45.909 Unspecified asthma, uncomplicated; M19.90 Unspecified osteoarthritis, unspecified site; Z96.652 Presence of left artificial knee joint; R13.10 Dysphagia, unspecified; K21.9 Gastro-esophageal reflux disease without esophagitis; K46.9 Unspecified abdominal hernia without obstruction or gangrene; K29.70 Gastritis, unspecified, without bleeding; I48.0 Paroxysmal atrial fibrillation; R73.9 Hyperglycemia, unspecified; G40.909 Epilepsy, unspecified, not intractable, without status epilepticus; Z88.0 Allergy status to penicillin; Z88.1 Allergy status to other antibiotic agents; Z88.2 Allergy status to sulfonamides; Z90.49 Acquired absence of other specified parts of digestive tract; Z98.42 Cataract extraction status, left eye; Z98.41 Cataract extraction status, right eye; Z68.35 Body mass index [BMI] 35.0-35.9, adult
CPT/HCPCS: 10078; 10081; 47000; 47001; 47002; 47297; 48888; 50010; 50249; 50409; 50456; 50497; 50643; 50668; 50953; 51301; 52131; 52259; 52287; 52314; 53327; 53358; 54118; 55415; 56455; 56524; 56525; 56526; 56527; 56528; 56531; 56534; 56668; 56719; 56760; 56898; 57093; 57100; 62110; 62900; 62950; 65003; 65020; 65047; 65120; 65135

== ENCOUNTER 2020-02-05 12:35 | Inpatient (IN) | payer OTHER ==
[~2020-02-05] VITALS: Ht 162.6 cm; Wt 88.1 kg
--- NOTE | ~2020-02-05 | PLAN ---
[facility] [place] [address] REHAB UNIT PLAN OF CARE Name: JACEY ATKINSON Room #: 509-P ADM IN M.R.#: [id number] Admission: 02/05/20 Attend Phys: Jerome Vu MD Discharge: Date of : 56 Report #: [id number] THIS REPORT FOR: //name// CC: Jerome Vu [facility] physician/PCP DATE OF SERVICE: 02/07/2020 PROGRESS NOTE/OVERALL PLAN OF CARE SUBJECTIVE: The patient was seen back today in followup. She is alert, pleasant. She has the wound VAC dressing in place over her sternum. Dressings in place over her lower extremities. No focal calf swelling. Denied any specific new complaints. She has been working in therapies with transfer standby assistance, gait standby assistance 250 feet without a device. She is being educated regarding sternal precautions. She is min assist for basic bed mobility and was actually mod assist yesterday. In occupational therapy, she was min assist for lower extremity dressing, standby assistance yesterday. Speech has been seeing regarding dysphagia/swallowing issues. She is on a regular diet with thin liquids, but she enhanced precautions as noted. ASSESSMENT: A 60-year-old white female with the following problem list: 1. Medical complexity with generalized debilitation. 2. Anomalous right coronary artery, status post unroofing and clipping of the left atrial appendage. 3. Dysphagia, status post dilation. 4. Paroxysmal atrial fibrillation with history of ablation. 5. Systemic inflammatory response syndrome with elevated temperature and leukocytosis. 6. Seizure disorder. 7. Hypothyroidism. 8. Hypertension. 9. Asthma. PLAN: The overall plan of care is based on the preadmission screen, post-admission physician evaluation and information garnered from therapy assessments. 1. Estimated length of stay is 5-10 days pending progress. 2. Medical prognosis is reasonably good. 3. Anticipated interventions includes the interdisciplinary acute inpatient rehabilitation program. 4. Anticipated functional outcomes would be for the patient to become modified independent with transfers, mobility, ADLs to achieve a point where she can return back to the home setting. Also to improve as far as her overall swallowing. 5. Discharge destination [place] back [place] [address] REHAB UNIT PLAN OF CARE Name: JACEY ATKINSON Room #: 509-P [facility] IN [facility]#: [id number] Admission: 02/05/20 Attend Phys: Jerome Vu MD Discharge: Date of : 56 Report #: [id number] 6. Expected therapy by discipline includes PT, OT and speech 1 hour per day each five days a week throughout the duration of the acute inpatient rehabilitation stay. By: [id number] Jerome Vu MD /nt
--- NOTE | ~2020-02-05 | H ---
[facility] [place] [address] HISTORY AND PHYSICAL Name: JACEY ATKINSON Room #: 509-P ADM IN M.R.#: [id number] Admission: 02/05/20 Attend Phys: Jerome Vu MD Discharge: Date of : 56 Report #: [id number] THIS REPORT FOR: cc: ANTHONY - No family physician/PCP ANTHONY - No family physician/PCP Jerome Vu MD ~ CC: Jerome CRUZ physician/PCP DATE OF SERVICE: 02/06/2020 HISTORY AND PHYSICAL/POST-ADMISSION PHYSICIAN: This is a 60-year-old white female who was admitted to [facility] on 01/28/2020 for a scheduled unroofing of the right coronary artery and clipping of the left atrial appendage by Cardiothoracic Surgery on 01/28/2020 for an anomalous right coronary artery. She had a wound VAC chest tube postop, had ____ with leukocytosis and elevated procalcitonin level with the hospitalist involved. Cardiology was involved for paroxysmal atrial fibrillation with history of ablation. She was noted to be significantly debilitated with a decline from her premorbid functional status and has been admitted for acute in-hospital inpatient rehabilitation. PAST MEDICAL HISTORY: Includes a seizure disorder for which she is on disability. Problem list also includes hypertension, paroxysmal atrial fibrillation. MEDICATIONS: Please see the full medication listing. ALLERGIES: Multiple as noted. SOCIAL HISTORY: She lives at home and ____ with her and her end-stage Parkinson's disease father. She did not utilize any assistive device, was independent with ADLs, but sometimes her spouse did help her. There is some assistance 2.5 hours per day 6 days a week to help with IADLs cooking, shopping and cleaning. Again, she was on disability due to her seizure disorder. REVIEW OF SYSTEMS: No current complaints of chest pain, shortness of breath or abdominal discomfort. PHYSICAL EXAMINATION: GENERAL: The patient was seen yesterday 02/05/2020. She was alert, pleasant. VITAL SIGNS: Temperature 98.5, pulse 79, respirations 16, blood pressure 111/60. Facies are symmetric. Follows basic commands without difficulty. CHEST: She has the wound VAC in place over her sternal area. Otherwise, sounds reasonably clear. CARDIAC: Sounded regular rate. She may have occasional extra beats. [facility] [address] [place] [address] HISTORY AND PHYSICAL Name: JACEY ATKINSON Room #: 509-P ADM IN .R.#: [id number] Admission: 02/05/20 Attend Phys: Jerome Vu MD Discharge: Date of : 56 Report #: [id number] ABDOMEN: Bowel sounds positive, nontender. GENITOURINARY AND RECTAL: Deferred. EXTREMITIES: Functional range of motion of the upper extremity strength is grade 4-/5. DTRs are trace to 1. Lower extremities, no focal calf swelling. No distal lower extremity edema. Strength is probably a grade ____ 4/5. Transfers have been min assist and she has been min assist for short distance ambulation. ASSESSMENT: A 60-year-old white female with the following problem list: 1. Medical complexity with generalized debilitation. 2. Anomalous right coronary artery, status post unroofing and clipping of left atrial appendix 01/28/2020. 3. Paroxysmal atrial fibrillation, history of ablation. 4. Systemic inflammatory response syndrome with elevated temperatures and leukocytosis. 5. Seizure disorder for which she was on disability. 6. Hypothyroidism. 7. Hypertension. 8. History of asthma. PLAN: The patient has sternal precautions. She has a sternal wound VAC. She has been admitted for acute in-hospital inpatient rehabilitation. From a postadmission physician evaluation perspective, there are no relevant changes since the preadmission screening. Please see the above review of prior and current medical and functional conditions and comorbidities. Please see the patient's previous and current functional status. As far as risk of complication, she does have the multiple medical comorbidities as noted above. Initial plan of care involves the interdisciplinary acute inpatient rehabilitation program. Measurable functional goals are for her to improve her strength, endurance, mobility and ADLs, so she can return back to the home setting. Prognosis is reasonably good with estimated length of stay probably 5-7 days up to 10 days depending upon what she needs. Potential barriers would include her multiple medical comorbidities and decreased functional status. The patient meets diagnostic criteria for an acute in-hospital inpatient rehabilitation stay. She meets the medical necessity criteria and we will have the method consultant physicians continue to follow. She does have the tolerance for therapies and has appropriate discharge goals back to the home setting. By: [id number] Jerome Vu MD /nt
--- NOTE | ~2020-02-05 | HC ---
[facility] [place] [address] CONSULTATION Name: JACEY ATKINSON Room #: 509-P ADM IN M.R.#: [id number] Admission: 02/05/20 Attend Phys: Jerome Vu MD Discharge: Date of : 56 Report #: [id number] THIS REPORT FOR: cc: ANTHONY - Tamra family physician/PCP ANTHONY - Tamra family physician/PCP Crow Chandra. PhD ~ CC: Jerome CRUZ physician/PCP DATE OF SERVICE: 02/09/2020 NEUROBEHAVIORAL STATUS EXAM ATTENDING PHYSICIAN: Jerome Vu MD SHIFT MANAGER: Crow Chandra, PhD CLINICAL PRESENTATION: The patient is a 60-year-old female admitted to the [facility] on 01/28/2020 for a scheduled unroofing of the right coronary artery and clipping of the left atrial appendage on 01/28/2020 for an anomalous right coronary artery. The patient had involvement from Cardiology for treatment of paroxysmal atrial fibrillation with a history of ablation. She was noted to be significantly debilitated from premorbid functioning and was referred for inpatient rehabilitation. Her past medical history includes seizure disorder for which she is on disability. Her assessment on admission to the rehabilitation unit was medical complexity with generalized debilitation; anomalous right coronary artery, status post unroofing and clipping of the left atrial appendage; paroxysmal atrial fibrillation with history of ablation, systemic inflammatory response syndrome with elevated temperatures and leukocytosis, seizure disorder for which she is on disability, hypothyroidism, hypertension and a history of asthma. A complete description of her medical condition and history can be found in her medical record. Neuropsychological consultation was requested to provide assistance in the assessment of cognitive and emotional status and to provide recommendations. Prior to this most recent medical event, she was living with her and father. She was taking care of her father. During her treatment and hospitalization, he has moved in with her sister. The patient has 3 sisters and had 2 brothers. One brother at age 14. The patient is a high school graduate. She has 4 children. 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 She retired 15 years ago and went on disability as a result of her seizure disorder. The [address] [address] CONSULTATION Name: JACEY ATKINSON Room #: 509-P [facility] IN ..#: [id number] Admission: 02/05/20 Attend Phys: Jerome Vu MD Discharge: Date of : 56 Report #: [id number] patient does not report a history of treatment for depression or anxiety. TECHNIQUES UTILIZED: Clinical interview, review of medical records, staff consultation and behavioral observation, mini mental status exam 2 standard version, clock drawing and verbal fluency assessment (letter and single category). EXAMINATION FINDINGS: The patient was alert and cooperative with the assessment. She accurately described events surrounding her admission. There is no evidence of aphasia. Her thoughts are logical and goal oriented. There is no evidence of thought disorder. She does not report auditory or visual hallucinations. She denies depression or anxiety. She indicates having an occasional difficulty with word finding and problems with sleep while hospitalized. She does not report difficulty with memory. The patient is independent and prior to her admission, she reports having been independent with bill payment as her has an 8th grade education and was unable to provide in the past. She does have an aide during the week. The patient has a nurse coming in to manage her medication. She has minimal driving. An aide is also present to assist with bathing and food preparation. Her performance on the MMSE 2 brief version was 13 of 16, which suggests mild difficulty. She was 3 of 3 for initial registration, 4 of 5 for orientation to time, 4 of [address]. She was 2 of 3 for immediate recall of 3 items after a brief time delay and distraction. Performance on the MMSE 2 standard version was 27 of 30. She was 5 of 5 for serial sevens, 2 of 2 for naming, 1 of 1 for repetition, 3 of 3 for comprehension. She could read and follow a single command and write a sentence. She was able to accurately copy a simple geometric design. The patient was able to have some slight difficulty with clock drawing in regard to hand placement. Letter fluency was at the 27th percentile, which is in the average range and within normal limits. Animal fluency was a T score of 47, which is at 38th percentile and in the average range. The patient appears to be presenting with fairly well maintained cognitive functioning. Mild variability in cognition is suggested. DIAGNOSTIC IMPRESSION: Mild neurocognitive disorder. RECOMMENDATIONS: The patient has supportive services established in her home. Her mood appears somewhat anxious. Difficulty with verbal fluency is described; however, she did adequately informed verbal fluency assessment. A mild degree of anxiety may be present contributing to inconsistency with cognition. Speech may also be affected by both seizure disorder and medications used to manage activity. [facility] [address] [place] [address] CONSULTATION Name: JACEY ATKINSON Room #: 509-P ADM [place] [facility].#: [id number] Admission: 02/05/20 Attend Phys: Jerome Vu MD Discharge: Date of : 56 Report #: [id number] Support and reassurance will likely be of benefit during her hospitalization. The patient may benefit from assistance in techniques to assist with compensation. However, she appears to have an environment that is providing services for instrumental activities of daily living. Thank you very much for allowing me to provide the consultation on this patient. By: [id number] Crow Chandra, PhD /nt
[~2020-02-05 12:35] MED LIST changes: +LEVAQUIN 750 M750 MG PO; +MIDODRINE HCL 55 M1 PO; -NEURONTIN 300300 M1 PO; +NEURONTIN 300M300 M2 PO
[2020-02-05 16:30] VITALS: BP 98/40
--- NOTE | 2020-02-05 17:19 | NUR ---
1630 PATIENT ADMITTED TO ROOM 509. PATIENT IS ALERT AND ORIENTED X4. PATIENT CURIEL'S, GYNECOLOGIST ARE EQUAL. LUNGS ARE CLEAR AND DEMINISHED WITH OCCASIONAL NON-PRODUCTIVE COUGH. ENCOURGAED I.S. ABD IS SOFT WITH BSX4. UP TO THE BSC TO VOID FRANKI COLORED URINE. S.L. IN LEFT ARM IS PATIENT AND INTACT. DRESSING TO NECK IS DRY AND INTACT. WOUND VAC TO CHEST INCISION IS DRY AND INTACT. DRESSING TO PATIENT S LEFT LEG IS DRY AND INTACT. FALL AND SAFETY PROTOCOLS IN PLACE. DENIES PAIN AT THIS TIME. WILL HAVE PT/OT/ST ROBYN IN A.M. CAll LIGHT IN REACH. PATIENT HAS EDEMA IN HER LOWER EXTREMITIES. WILL CONTINUE TO MONITER.
[2020-02-05 20:50] VITALS: BP 121/55
--- NOTE | 2020-02-06 02:28 | NUR ---
PATIENT TAKING CARE TO NOT TRIP ON PATENT WOUND VAC. SLEEPING IN CHAIR AND VOIDING ON BSC APPROX EVERY 2 HOURS. DRESSING ON RIGHT NECK FALLING OFF AND REPLACED BY LARGE BANDAID. LEGS SWOLLEN, LEGS OF CHAIR ELEVATED TO MINIMIZE THIS. STERNAL PRECAUTIONS AND HOLDING ONTO CARDIAC PILLOW
[2020-02-06 05:40] LABS: HEMOGLOBIN 9.7 gm/dL (12.0-15.0); MCH 28.6 pg (26.0-34.0); MCHC 33.4 g/dL (28.0-37.0); MCV 85.6 fL (80.0-100.0); RBC 3.39 mil/uL (4.20-5.00); RDW 16.7 % (10.5-14.5)
[2020-02-06 05:51] LABS: CALCIUM 8.2 mg/dL (8.5-10.1); CREATININE 0.7 mg/dL (0.6-1.0); POTASSIUM 3.9 mmol/L (3.5-5.1)
[2020-02-06 07:24] VITALS: BP 111/60
--- NOTE | 2020-02-06 11:23 | NUR ---
ASSUMED CARE AT 0700. PATIENT IS ALERT AND ORIENTED X4. CURIEL'S, SOILED LINEN DISTRIBUTOR ARE EQUAL. LUNGS ARE CLEAR AND DEMINISHED. ENCOURAGED I.S. PATIENT. ABD IS SOFT WITH BSX4. UP TO THE BSC TO VOID FRANKI COLORED URINE. PATIENT HAS WOUND VAC TO HER MID CHEST AREA. DRESSING TO LEFT LEG DRY AND INTACT. ABRASIONS TO HER BACK BARRIER CREAM APPLIED. PATIENT IS UP WITH GAIT BELT AND ASSIST OF 1 STAFF FOR TRANSFERS. UP IN THE CHAIR FOR MEALS. FALL AND SAFETY PROTOCOLS IN PLACE. DENIES PAIN AT THIS TIME . WILL CONTINUE TO MONITER.
--- NOTE | 2020-02-06 11:45 | NUR ---
chart review pt up in chair with physical therapy. cm visit with face mask and face shield on. intro to cm and team meeting. pt and spouse live in [place], she was independent prior to coming to hospital. no dme, manage own medication and drives vehicle. will cont following as needed for dc needs.
--- NOTE | 2020-02-06 12:59 | NUR ---
Nutrition: Assessed due to RD consult for diet change from ground to normal. Admit to rehab yesterday for therapy s/p open heart surgery for unroofing on R coronary artery, clipping L atrial appendage. Pt was eating lunch at time of visit. On a heart healthy diet. Pt was recommended to have pureed and/or ground diet but per EMR pt refused. Is now on more mechanical soft, needing moist foods per notes. Ordered a tuna sandwich for main protein source today. Provided diet education on heart healthy diet, encouraging leaner protein sources. Pt already avoids salt and all seasonings in cooking; daughter has hx CKD and thus doesn't use. Pt's legs currently swollen. Pt was working towards wt loss, down to 185#, now 207#, but pt states she has a lot of fluid. Hx of hypothyroidism and states her provider is planning to increase her meds. She is s/p EGD w/ dilation yesterday. Knows what foods to eat, how small to cut, etc per her report. Went over allowed menu options for alternative protein. As pt dislikes eggs and yogurt, suggested peanut butter on bread in a.m. for protein. Pt deemed low nutrition risk w/ education complete.
[2020-02-06 19:29] VITALS: BP 123/53
[2020-02-07] MEDS ORDERED: LAMOTRIGINE250 MG PO (01:52)
--- NOTE | 2020-02-07 03:36 | NUR ---
assumed care approx 1900 evening 02/05. pt alert and oriented x4, pleasant and cooperative. wound vac in place functioning with no problems. pt up to bsc tonight to void and have small bm with minimal assist. pt appears to be sleeping soundly with hourly rounding checks. pt up in recliner now per her request. chair alarm on, call light in reach. will continue to monitor.
--- NOTE | 2020-02-07 07:12 | NUR ---
ASSUMED CARE AT 0700. PATIENT IS ALERT AND ORIENTED X4. 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 LUNGS ARE CLEAR AND DEMINISHED. ABD IS SOFT WITH BSX4. UP TO BSC TO VOID AND HAVE BM. UP IN CHAIR FOR MEALS. PATIENT HAS WOUND VAC TO HER MID CHEST AREA. DRESSING IS DRY AND INTACT. PATIENT HAS DRESSING TO HER LEFT LEG THAT ARE DRY AND INTACT. FALL AND SAFETY PROTOCOLS IN PLACE. C/O PAIN IN HER LEG. MEDICATED WITH PRN PAIN MED. CONTINUES TO PROGRESS TOWARDS D/C GOALS. WILL CONTINUE TO MONITER.
[2020-02-07 07:15] VITALS: BP 116/60
--- NOTE | 2020-02-07 08:28 | NUR ---
I have reviewed the documentation by STAR ALMANZAR from 02/06/20 to 02/06/20 and I concur with it. FARIDA HELTON
--- NOTE | 2020-02-07 13:49 | HC ---
[facility] [place] [address] CONSULTATION Name: JACEY ATKINSON Room #: 509-P ADM IN .R.#: [id number] Admission: 02/05/20 Attend Phys: Jerome Vu MD Discharge: Date of : 56 Report #: [id number] THIS REPORT FOR: cc: ANTHONY Barboza family physician/PCP ANTHONY Barboza family physician/PCP Anjel Dick MD ~ CC: Jerome CRUZ physician/PCP DATE OF SERVICE: 02/06/2020 ENDOCRINE CONSULTATION NOTE CONSULTING PHYSICIAN: Dr. Vu. REASON FOR CONSULTATION: Hypocalcemia, hypoparathyroidism and hypothyroidism. HISTORY OF PRESENT ILLNESS: This is a 60-year-old female patient whose medical background is significant for multiple cardiac issues including CAD, atrial fibrillation with multiple ablation procedures in the past. She was admitted on 01/28/2020 to undergo an unroofing of her right coronary artery and clipping of the left atrial appendage, which she has undergone well without perioperative complications. The patient's background is significant for hypothyroidism since her total thyroidectomy in 2003 for a benign goiter. She has been maintained on 112 mcg daily for the past few months, before which she was maintained on 137 mcg daily. She has been feeling more fatigued and tired lately. Since the time of her thyroidectomy, the patient was rendered hypoparathyroid and hypocalcemic and has been maintained on a stable regimen of calcium carbonate 1000 mg t.i.d. in addition to calcitriol 0.5 mcg daily as well as weekly high dose ergocalciferol therapy at 50,000 International Units weekly. The patient does encounter intermittent issues with tingling and numbness of her fingertips, lips and face, but not to a disruptive degree. She rarely experiences muscle spasms. REVIEW OF SYSTEMS: CONSTITUTIONAL: Fatigue, tiredness, no weight changes or fever or chills. HEENT: Negative for sore throat, ear drainage. PULMONARY: Occasional shortness of breath and cough with seasonal allergies. No hemoptysis. CARDIAC: Negative for chest pain, syncope or presyncope. GASTROINTESTINAL: Negative for nausea, vomiting or frequent issues with abdominal pain. NEUROLOGY: Negative for loss of consciousness, headaches or seizure activity. [facility] [address] [place] [address] CONSULTATION Name: JACEY ATKINSON Room #: 509-P [facility] IN .R.#: [id number] Admission: 02/05/20 Attend Phys: Jerome Vu MD Discharge: Date of : 56 Report #: [id number] Otherwise, review of systems noncontributory other than those mentioned in HPI. PAST MEDICAL HISTORY: 1. Hypothyroidism. 2. Hypoparathyroidism. 3. Hypocalcemia. 4. Vitamin D deficiency. 5. Osteoporosis. 6. GERD. 7. Coronary artery disease. 8. Atrial fibrillation. 9. Seizure disorder. 10. Arthritis. 11. Asthma. PAST SURGICAL HISTORY: Appendectomy, total thyroidectomy, hysterectomy; total knee replacement, left sided; cardiac ablation procedures, lumbar laminectomy, bilateral cataract surgery, anterior cervical fusion. OUTPATIENT MEDICATIONS: Include calcitriol 0.5 mcg daily, Singulair 10 mg daily, Keppra 1500 mg b.i.d., calcium, D3, magnesium, multivitamin 2 tabs p.o. b.i.d., levothyroxine 112 mcg daily, gabapentin 300 mg t.i.d., Nexium 40 mg b.i.d., albuterol 2 puffs p.r.n. asthma; Asmanex, Fosamax 70 mg weekly, Flonase, vitamin D 50,000 units weekly. ALLERGIES: She is allergic to SULFA, TOPAMAX, KEFLEX, PENICILLINS, TURPENTINE OIL. FAMILY HISTORY: Noncontributory. SOCIAL HISTORY: The patient denies use of tobacco, alcohol or illicit drugs. PHYSICAL EXAMINATION: GENERAL: Pleasant female patient who is not in apparent pain or distress. VITAL SIGNS: Blood pressure is 111/60 mmHg, heart rate is 78 beats per minute, respirations 16 per minute, temperature 36.9 degrees Celsius. CONSTITUTIONAL: She is sitting up in her reclining chair, appears comfortable, not in apparent distress. HEENT: Anicteric sclerae. Intact extraocular motions. NECK: Supple, without JVD or carotid bruits. A well-healed thyroidectomy incision is noted in the base of the neck. CHEST: Noted for moderate entry bilaterally with scattered rales. No wheezes or crackles. HEART: Regular rate and rhythm without murmurs or gallops. [address] [address] CONSULTATION Name: JACEY ATKINSON Room #: 509-P ADM IN M.R.#: [id number] Admission: 02/05/20 Attend Phys: Jerome Vu MD Discharge: Date of : 56 Report #: [id number] ABDOMEN: Soft, lax, no tenderness, no guarding. Active bowel sounds. EXTREMITIES: Lower extremity exam is noted for trace ankle edema. No skin breaks. Pedal pulses are appreciated. NEUROLOGIC: Awake, alert and oriented to time, place and person. The remainder of her examination is nonfocal. PSYCHIATRIC: Pleasant, interactive. Normal mood and affect. LABORATORY RESULTS: Blood glucose values have been largely in normal range. Otherwise, sodium 141, potassium 3.9, chloride 107, CO2 of 24, anion gap 10, BUN 7, creatinine 0.7, glucose 96, AST 108, total bilirubin 0.3; calcium 8.2, it hit a low of 6.3 on 01/29/2020; phosphorus 2.6, magnesium 2.1, alkaline phosphatase 130, ALT 77, total protein 6.1, albumin 2.8, EGFR 85. Free T4 of 1.0. INR of 1.2. White blood count 11, hemoglobin 9.7, hematocrit 29, platelets 637. TSH of 25.104. Hemoglobin A1c 5.3%. Vitamin D of 52.7. ASSESSMENT AND PLAN: 1. Hypothyroidism. As noted above, the patient has been on the current dose of levothyroxine for 3 months following a suppressed TSH a few months back. However, her current workup indicates suboptimal coverage with this dose selection. That said, she would be converted back to 137 mcg daily with a plan to maintain this dosage on discharge and revisit her thyroid function studies 4-6 weeks from now. 2. Hypocalcemia. The patient has chronic hypocalcemia due to hypoparathyroidism. She has been maintained on a stable calcium carbonate regimen of 1000 mg t.i.d. as well as calcitriol 0.5 mcg daily, and ergocalciferol 50,000 International Units weekly. This will be maintained. Her calcium level most recently earlier today was reflective of adequate control. 3. Hypoparathyroidism as noted above. 4. Vitamin D deficiency. With the current regimen, the patient has been under adequate control with her recent vitamin D levels reflecting that outlook. She is to continue with the same. I certainly appreciate this consultation by Dr. Vu. <ELECTRONICALLY SIGNED> By: Anjel Dick MD 02/07/20 1349 [id number] [id number] Anjel Dick MD /nt
--- NOTE | 2020-02-07 15:51 | NUR ---
I have reviewed the documentation by STAR ALMANZAR from 02/07/20 to 02/07/20 and I concur with it. FARIDA HELTON
[2020-02-07 19:11] VITALS: BP 106/41
[2020-02-07 20:50] VITALS: BP 111/56
--- NOTE | 2020-02-07 23:24 | NUR ---
PT ASSESSMENT COMPLETED AND VSS. MEDS GIVEN ORDERED AND WELL TOLERATED. FALL PRECUATIONS IN PLACE. UP TO THE BSC WITH ASST/GAIT/WALKER. DSG AND WOUND VAC TO STERNUM DRY/INTACT - WNL. BOTH DRESSING TO LEFT LEG DRY AND INTACT. PT WANTED TO SLEEP IN THE CHAIR THIS EVENING AND DID NOT ALLOW STAFF TO PUT HER IN A GOWN. PT STATES SHE IS COMFORTABLE AND TIRED AND DID NOT WANT TO CHANGE. LEGS ELEVATED IN CHAIR. SLEEPING WELL. SAT WNL ON 2L NC. WILL CONTINUE TO MONITOR FREQUENTLY.
[2020-02-08 07:40] VITALS: BP 106/51
--- NOTE | 2020-02-08 14:21 | NUR ---
ASSUMED CARE OF PT AT 0700. PT IS A&OX4 AND VITAL SIGNS ARE STABLE. PT DENIES PAIN AND PARTICIPATED IN SCHEDULED THERAPIES. DENIES LOOSE STOOLS THIS SHIFT. DRESSING CHANGES TO LLE X2 PER ORDERS. WOUND VAC TO STERNUM DRAINING APPROPRIATELY. FALL PRECAUTIONS IN PLACE AND NURSING WILL CONTINUE TO MONITOR.
[2020-02-08 19:15] VITALS: BP 111/54
--- NOTE | 2020-02-09 02:08 | NUR ---
ASSUMED PT CARE AT 1900.PT WAS OBSERVED SITTING UP IN THE RECLINER IN HER ROOM WATCHING TV AT SHIFT CHANGE.PT C/O PAIN ON HER R KNEE,MANAGED WITH MED.PT UP WITH ASSIST/[facility] BEL[facility] [place] [facility].MIDLINE INCISION DRSG C/D/I WITH A WOUND VAC.EDEMA TO HER LLE ELEVATED WHILE IN THE CHAIR.PT HAD A SMALL SOFT FORMED BROWN BM.PT SLEEPING IN THE RECLINER AT THIS TIME.CALL LIGHT WITHIN REACH.
[2020-02-09 07:30] VITALS: BP 97/59
--- NOTE | 2020-02-09 16:16 | NUR ---
ASSUMED CARE OF PT AT 0700. PT IS A&OX4 AND VITAL SIGNS ARE STABLE. REPORTS RIGHT KNEE PAIN, MANAGED WITH PO MEDICATIONS, AND PARTICIPATED IN SCHEDULED THERAPIES. SURGICAL SITES TO LLE WITH DRESSING C/D/I. WOUND VAC TO STERNUM, INTACT AND DRAINING APPROPRIATLEY. FALL PRECAUITONS IN PLACE AND NURSING WILL CONTINUE TO MONITOR.
[2020-02-09 19:42] VITALS: BP 112/51
--- NOTE | 2020-02-09 23:07 | NUR ---
PT ASSESSMENT COMPLETED AND VSS. MEDS GIVEN ORDERED AND WELL TOLERATED. UP TO THE BSC WITH ASST/GAIT - STEADY. DSG TO STERNUM AND WOUND VAC INTACT AND WNL. PT REFUSED TO SLEEP IN BED AND STATES THAT SHE SLEEPS IN A CHAIR AT HOME WELL. LEGS ELEVATED. SKIN INTACT. WILL CONTINUE TO MONITOR FREQUENTLY.
--- NOTE | 2020-02-10 07:36 | NUR ---
ASSUMED CARE AT 0700. PATIENT IS ALERT AND ORIENTED X4. 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 LUNGS ARE CLEAR AND DEMINISHED. ABD IS SOFT WITH BSX4. UP TO THE BSC WITH ASSIST OF 1 WITH GAIT BELT. PATIENT HAS WOUND VAC TO MID CHEST AREA. DRESSING TO HER LEFT LEG DRY AND INTACT. UP IN CHAIR FOR MEALS. FALL AND SAFETY PROTOCOLS IN PLACE. C/O LEFT LEG PAIN. MEDICATED WITH PRN PAIN MED. CONTINUES TO PROGRESS TOWARDS D/C GOALS. WILL CONTINUE TO MONITER.
[2020-02-10 08:20] VITALS: BP 113/48
--- NOTE | 2020-02-10 16:43 | NUR ---
I have reviewed the documentation by STAR ALMANZAR from 02/10/20 to 02/10/20 and I concur with it. FARIDA HELTON
[2020-02-10 19:37] VITALS: BP 121/52
--- NOTE | 2020-02-11 01:12 | NUR ---
PT ASSESSMENT COMPLETED AND VSS. MEDS GIVEN ORDERED AND WELL TOLERATED. FALL PRECAUTIONS IN PLACE. UP TO THE BSC WITH ASST/GAIT - STEADY. STERNAL DRESSING WITH WOUND VAC DRY AND INTACT - WNL. PRN TYELNOL HELPFUL FOR R KNEE PAIN. PT STATES THAT THE LIDOCAINE PATCH ON HER R KNEE HAS HELPED HER WELL. SAT WNL ON 2L NC AT HS. SLEEPING WELL. WILL CONTINUE TO MONITOR FREQUENTLY.
--- NOTE | 2020-02-11 07:41 | NUR ---
ASSUMED CARE AT 0700. PATIENT IS ALERT AND ORIENTED X4. 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 LUNGS ARE CLEAR AND DEMINISHED. INCOURAGED I.S. ABD IS SOFT WITH BSX4. UP TO THE BSC TO VOID FRANKI COLORED URINE. PATIENT HAS WUUND VAC TO MID CHEST AREA. PATIENT HAS DRESSINGS TO LEFT LEG. UP IN CHAIR FOR MEALS. FALL AND SAFETY PROTOCOLS IN PLACE. C/O PAIN IN HER RIGHT LEG. MEDICATED WITH PRN PAIN PATCH AND PAIN MED. CONTINUES TO PROGRESS SLOWLY TOWARDS D/C GOALS. WILL CONTINUE TO MONITER.
[2020-02-11 08:30] VITALS: BP 97/53
--- NOTE | 2020-02-11 12:33 | NUR ---
team meeting, recommendation: report right post knee pain. 02/11 dc hh ( ot, pt, nursing). bedside to check on vac.
--- NOTE | 2020-02-11 16:31 | NUR ---
FAXED REFERRAL TO [facility] RECEIVED CONFIRMATION AND LEFT MSG WITH INTAKE PT TO DC ON 02/11.
[2020-02-11 19:33] VITALS: BP 107/51
--- NOTE | 2020-02-11 23:41 | NUR ---
ASSUMED CARE OF PT AT 1915. PT IS A&OX4. IS ON ROOM AIR. DENIES PAIN IN CHEST. INCISION NITZA WITH SOME SUTURES & 2 BANDAIDS AT LOWER SITES. PT IS STABLE. IS UP WITH SBAHÉCTOR. FALL PRECAUTIONS & HOURLY ROUNDING CONTINUED THIS SHIFT. LABS & VITALS REVIEWED. PT IS SLEEPING IN THE RECLINER. CALL LIGHT WITHIN REACH. ALARM IN PLACE. WILL CONTINUE TO MONITOR.
[2020-02-12 05:35] LABS: HEMATOCRIT 32.6 % (37.0-47.0); HEMOGLOBIN 10.5 gm/dL (12.0-15.0); MCH 27.5 pg (26.0-34.0); MCHC 32.4 g/dL (28.0-37.0); MCV 84.9 fL (80.0-100.0); PLATELET COUNT 854 thou/uL (150-400); RBC 3.84 mil/uL (4.20-5.00); RDW 15.9 % (10.5-14.5); WBC 12.6 thou/uL (4.0-11.0)
[2020-02-12 05:53] LABS: CALCIUM 8.4 mg/dL (8.5-10.1); POTASSIUM 4.1 mmol/L (3.5-5.1)
[2020-02-12] MEDS ORDERED: CALTRATE-600 W1 EACH PO (07:46)
[2020-02-12] MEDS ORDERED: SYNTHROID137 MC1 PO (07:46)
[2020-02-12] MEDS ORDERED: MIDODRINE HCL 55 M1 PO (07:46)
[2020-02-12] MEDS ORDERED: PRADAXA150 MG PO (07:46)
[2020-02-12] MEDS ORDERED: TYLENOL325 MG PO (07:46)
[2020-02-12 08:00] VITALS: BP 110/53
[2020-02-12 09:09] VITALS: BP 107/51
--- NOTE | 2020-02-12 09:36 | NUR ---
ON-GOING ASSESSMENT: CM REVIEWED CHART. PATIENT HAS ORDERS TO DISCHARGE HOME TODAY WITH HOME HEALTH ([facility] HAS ACCEPTED). CM NOTIFIED [facility] OF DISCHARGE TODAY AND CM FAXED DISCHARGE ORDERS AND NOTIFIED [facility] IN INTAKE. CM CONFIRMED THEY RECEIVED DISCHARGE PAPERWORK. CM ALSO SPOKE WITH PATIENTS NATTY TO NOTIFY HIM OF INFORMATION AND DISCHARGE TODAY AND HE REPORTS THAT HE IS COMING TO PICK HER UP.
[2020-02-12 09:44] LABS: PLATELET ESTIMATE INCREASED
[2020-02-12 14:00] VITALS: BP 107/51
--- NOTE | 2020-02-12 15:30 | NUR ---
PT ASSESSED AT START OF SHIFT. WORKED W/ THERAPY THIS AM. DISCHARGE INSTRUCTIONS GIVEN AND PT DC'D W/ ALL BELONGINGS. HOME HEALTH SCHEDULED TO TOMORROW.
== END 2020-02-12 14:54 | disposition home health service (06) | DRG 947 ==
PROVIDERS: Nurse Practitioner; ADMIT Physical Medicine & Rehabilitation; ATTEND Physical Medicine & Rehabilitation
PROC: 05HY33Z Insertion of Infusion Device into Upper Vein, Percutaneous Approach (ICD-10-PCS; principal; 2020-02-05)
DX: R53.81 Other malaise (principal); J96.01 Acute respiratory failure with hypoxia; R65.10 Systemic inflammatory response syndrome (SIRS) of non-infectious origin without acute organ dysfunction; Q24.5 Malformation of coronary vessels; J91.8 Pleural effusion in other conditions classified elsewhere; I48.0 Paroxysmal atrial fibrillation; G40.909 Epilepsy, unspecified, not intractable, without status epilepticus; I10 Essential (primary) hypertension; J45.909 Unspecified asthma, uncomplicated; M81.0 Age-related osteoporosis without current pathological fracture; K21.9 Gastro-esophageal reflux disease without esophagitis; I25.10 Atherosclerotic heart disease of native coronary artery without angina pectoris; E89.0 Postprocedural hypothyroidism; E20.9 Hypoparathyroidism, unspecified; E55.9 Vitamin D deficiency, unspecified; R13.10 Dysphagia, unspecified; G31.84 Mild cognitive impairment of uncertain or unknown etiology; Z60.2 Problems related to living alone; I95.9 Hypotension, unspecified; M17.11 Unilateral primary osteoarthritis, right knee; Z96.651 Presence of right artificial knee joint; Z90.49 Acquired absence of other specified parts of digestive tract; Z98.42 Cataract extraction status, left eye; Z98.41 Cataract extraction status, right eye; Z88.0 Allergy status to penicillin; Z88.2 Allergy status to sulfonamides; Z88.8 Allergy status to other drugs, medicaments and biological substances; Z90.710 Acquired absence of both cervix and uterus; Z82.49 Family history of ischemic heart disease and other diseases of the circulatory system
CPT/HCPCS: 10112

== ENCOUNTER → 2020-02-27 | Outpatient (CLI) | payer OTHER ==
[~2020-02-27] MED LIST changes: +CALTRATE-600 W1 EACH PO; +LAMOTRIGINE250 MG PO; +SYNTHROID137 MC1 PO; +TYLENOL325 MG PO
== END ==
LOC: SJCVC 15:01
PROVIDERS: ATTEND Internal Medicine Cardiovascular Disease
DX: I25.10 Atherosclerotic heart disease of native coronary artery without angina pectoris (principal); I48.0 Paroxysmal atrial fibrillation; I95.1 Orthostatic hypotension; Q24.5 Malformation of coronary vessels; G47.30 Sleep apnea, unspecified; Z88.0 Allergy status to penicillin; Z88.2 Allergy status to sulfonamides; Z88.8 Allergy status to other drugs, medicaments and biological substances; Z79.899 Other long term (current) drug therapy; Z82.49 Family history of ischemic heart disease and other diseases of the circulatory system; R94.31 Abnormal electrocardiogram [ECG] [EKG]

== ENCOUNTER → 2020-04-02 | Outpatient (CLI) | payer OTHER | LOC: RAD 12:18 | PROVIDERS: ATTEND Pediatrics | DX: R06.02 Shortness of breath (principal) ==

== ENCOUNTER → 2020-04-09 | Outpatient (CLI) | payer OTHER | LOC: SJCVCIMAG 11:28 | PROVIDERS: ATTEND Internal Medicine Cardiovascular Disease | DX: I07.1 Rheumatic tricuspid insufficiency (principal); R94.31 Abnormal electrocardiogram [ECG] [EKG]; I48.0 Paroxysmal atrial fibrillation; I10 Essential (primary) hypertension; I95.1 Orthostatic hypotension; Q24.5 Malformation of coronary vessels; G40.909 Epilepsy, unspecified, not intractable, without status epilepticus; Z79.899 Other long term (current) drug therapy ==

== ENCOUNTER → 2020-11-25 | Outpatient (CLI) | payer OTHER | LOC: SJCVC 13:05 | PROVIDERS: ATTEND Internal Medicine Cardiovascular Disease | DX: R94.31 Abnormal electrocardiogram [ECG] [EKG] (principal); Q24.5 Malformation of coronary vessels; I48.0 Paroxysmal atrial fibrillation; I95.1 Orthostatic hypotension; R60.9 Edema, unspecified; I10 Essential (primary) hypertension; G89.29 Other chronic pain; Z90.49 Acquired absence of other specified parts of digestive tract; Z90.710 Acquired absence of both cervix and uterus; Z98.890 Other specified postprocedural states; Z88.2 Allergy status to sulfonamides; Z88.0 Allergy status to penicillin; Z88.8 Allergy status to other drugs, medicaments and biological substances; Z79.82 Long term (current) use of aspirin; Z79.899 Other long term (current) drug therapy; Z82.49 Family history of ischemic heart disease and other diseases of the circulatory system ==

== ENCOUNTER → 2021-01-26 | Outpatient (CLI) | payer OTHER | LOC: SJCVC 11:09 | PROVIDERS: ATTEND Internal Medicine Cardiovascular Disease | DX: R94.31 Abnormal electrocardiogram [ECG] [EKG] (principal); I48.0 Paroxysmal atrial fibrillation; I95.1 Orthostatic hypotension; R42 Dizziness and giddiness; E03.9 Hypothyroidism, unspecified; I10 Essential (primary) hypertension; Z88.0 Allergy status to penicillin; Z88.2 Allergy status to sulfonamides; Z88.8 Allergy status to other drugs, medicaments and biological substances; Z88.1 Allergy status to other antibiotic agents; Z79.899 Other long term (current) drug therapy ==

== ENCOUNTER → 2021-03-09 | Outpatient (CLI) | payer OTHER | LOC: SJCVC 10:30 | PROVIDERS: ATTEND Internal Medicine Cardiovascular Disease | DX: R94.31 Abnormal electrocardiogram [ECG] [EKG] (principal); I48.0 Paroxysmal atrial fibrillation; H53.8 Other visual disturbances; L03.90 Cellulitis, unspecified; G89.29 Other chronic pain; M54.9 Dorsalgia, unspecified; I10 Essential (primary) hypertension; E03.9 Hypothyroidism, unspecified; E61.1 Iron deficiency; R09.02 Hypoxemia; G40.909 Epilepsy, unspecified, not intractable, without status epilepticus; G25.2 Other specified forms of tremor; Z79.899 Other long term (current) drug therapy; Z82.49 Family history of ischemic heart disease and other diseases of the circulatory system; Z88.0 Allergy status to penicillin; Z88.1 Allergy status to other antibiotic agents; Z88.2 Allergy status to sulfonamides; Z88.8 Allergy status to other drugs, medicaments and biological substances ==